=== PATIENT | female | born 1995 | race Caucasian/White ===

== ENCOUNTER 2019-09-07 12:03 | Outpatient (CLI) | payer BC, SELFPAY ==
[2019-09-08 11:02] LABS: Hepatitis A Antibody IgM Negative (Negative); Hepatitis B Core Antibody Negative (Negative); Hepatitis B surface Ag Negative (Negative); Hepatitis C Ab w Rflx HCV PCR Negative (Negative)
[2019-09-08 11:08] LABS: Syphilis Serology (RPR) Negative (Negative)
[2019-09-08 11:18] LABS: HIV-1/2 Ag & Ab Screen Negative (Negative)
== END 2019-09-07 12:23 ==
PROVIDERS: PCP Student in an Organized Health Care Education/Training Program; Visit Provider Obstetrics & Gynecology
DX: Z11.3 Encounter for screening for infections with a predominantly sexual mode of transmission (principal); Z11.59 Encounter for screening for other viral diseases; Z11.4 Encounter for screening for human immunodeficiency virus [HIV]
CPT/HCPCS: 86704; 86709; 86803; 87340; 87389; 86592

== ENCOUNTER 2019-09-07 13:02 | Outpatient (REF) | payer BC, SELFPAY ==
--- NOTE | 2019-09-07 11:40 | PAPFT_PTH ---
PATIENT: Bhavana Munguia LOC: [facility] U#:[id number] AGE/SX: 23/F ROOM: RE09/07/[address]: Aaliyah Cobos DO : 1995 BED: DIS: 09/07/2019 SPEC #: [id number] RECD: 09/07/19 14:36 STATUS: GALA REQ #: [id number] ALICIA: 09/07/19 11:[address]: Aaliyah Cobos DEPT: [facility] Cytology RECD BY: Barbara Klein ENTERED: 09/07/19 14:37 SP TYPE: PAPFT OTHR DR: Kristi Presley DO Tissues: 1 - CX/ENDOCX FOR PAP SMEARS Procedures: PAP THIN PREP/UVM Screening Comments: [id number] (CHLAMYDIA/GC)
[2019-09-08 13:39] LABS: Chlamydia Result Negative (Negative); GC Result Negative (Negative)
== END 2019-09-07 13:22 ==
LOC: LBN 13:02
PROVIDERS: PCP Student in an Organized Health Care Education/Training Program; Visit Provider Obstetrics & Gynecology
DX: Z11.3 Encounter for screening for infections with a predominantly sexual mode of transmission (principal); Z12.4 Encounter for screening for malignant neoplasm of cervix; R87.612 Low grade squamous intraepithelial lesion on cytologic smear of cervix (LGSIL)
CPT/HCPCS: 87491; 87591; 88142

== ENCOUNTER 2020-11-30 02:36 | Outpatient (CLI) | payer OTHER, SELFPAY ==
[2020-11-30 10:58] LABS: HCT 44.9 % (36.0-46.0); HGB 14.8 g/dL (11.2-15.7); MCH 28.6 pg (27.0-33.0); MCV 86.7 fL (80-95); MPV 10.1 fL (8.0-11.0); Platelet Count 296 10^3/uL (130-400); RBC 5.18 10^6/uL (3.93-5.22); RDW 12.8 % (11.7-14.6); RDW-SD 40.4 fL
[2020-11-30 12:01] LABS: ALT 28 U/L (14-59); AST 19 U/L (15-37); Albumin 4.4 g/dL (3.4-5.0); Alkaline Phosphatase 86 U/L (46-116); Anion Gap 11.3 mmol/L (3-11); BUN 13 mg/dL (7-18); Bilirubin, Total 0.5 mg/dL (0.2-1.0); CO2 25.7 mmol/L (21.0-32.0); Calculated LDL 140 mg/dL (<100); Chloride 104 mmol/L (98-107); Cholesterol 202 mg/dL (<200); Glucose 93 mg/dL (74-106); HDL Cholesterol 33 mg/dL (40-60); Potassium 4.1 mmol/L (3.5-5.1); Sodium 141 mmol/L (136-145); TSH (W/Ref FT4) 1.66 uIU/mL (0.36-3.74); Total Protein 8.2 g/dL (6.4-8.2); Triglyceride 146 mg/dL (<150)
== END 2020-11-30 02:37 | disposition home or self-care (01) ==
LOC: LBO 02:36
PROVIDERS: PCP Student in an Organized Health Care Education/Training Program; Visit Provider Student in an Organized Health Care Education/Training Program
DX: K62.5 Hemorrhage of anus and rectum (principal); K58.9 Irritable bowel syndrome, unspecified; E46 Unspecified protein-calorie malnutrition; Z13.220 Encounter for screening for lipoid disorders; E86.0 Dehydration; R53.83 Other fatigue; F41.8 Other specified anxiety disorders; Z80.8 Family history of malignant neoplasm of other organs or systems; R01.1 Cardiac murmur, unspecified; R92.0 Mammographic microcalcification found on diagnostic imaging of breast
CPT/HCPCS: 36415; 80053; 80061; 85027; 83735; 84443

== ENCOUNTER 2021-09-05 10:29 | Outpatient (REF) | payer BC, SELFPAY | END 2021-09-05 10:30 | disposition home or self-care (01) | LOC: LBN 10:29 | PROVIDERS: PCP Student in an Organized Health Care Education/Training Program; Visit Provider Student in an Organized Health Care Education/Training Program | DX: R39.15 Urgency of urination (principal) | CPT/HCPCS: 87086 ==

== ENCOUNTER 2021-09-26 14:35 | Outpatient (REF) | payer BC, SELFPAY | END 2021-09-26 14:36 | disposition home or self-care (01) | LOC: LBN 14:35 | PROVIDERS: PCP Student in an Organized Health Care Education/Training Program; Visit Provider Student in an Organized Health Care Education/Training Program | DX: R30.0 Dysuria (principal) | CPT/HCPCS: 87086 ==

== ENCOUNTER 2021-10-16 15:19 | Outpatient (REF) | payer BC, SELFPAY ==
--- NOTE | 2021-10-16 14:40 | PAPFT_PTH ---
PATIENT: Bhavana Munguia LOC: [facility] U#:[id number] AGE/SX: 25/F ROOM: RE10/16/[address]: Aaliyah Cobos DO : 1995 BED: DIS: 10/16/2021 SPEC #: [id number] RECD: 10/17/21 10:43 STATUS: GALA REQ #: [id number] ALICIA: 10/16/21 14:[address]: Aaliyah Cobos DEPT: [facility] Cytology RECD BY: Mattie De León ENTERED: 10/17/21 10:44 SP TYPE: PAPFT OTHR DR: Kristi Presley DO Tissues: 1 - CX/ENDOCX FOR PAP SMEARS Procedures: PAP THIN PREP/UVM Screening HPV DNA PROBE Comments: [id number] (CHLAMYDIA/GC)
[2021-10-19 08:21] LABS: Chlamydia Result Negative (Negative); GC Result Negative (Negative)
== END 2021-10-16 15:20 | disposition home or self-care (01) ==
LOC: LBN 15:19
PROVIDERS: PCP Student in an Organized Health Care Education/Training Program; Visit Provider Obstetrics & Gynecology
DX: Z11.3 Encounter for screening for infections with a predominantly sexual mode of transmission (principal); Z12.4 Encounter for screening for malignant neoplasm of cervix; Z11.51 Encounter for screening for human papillomavirus (HPV)
CPT/HCPCS: 87491; 87591; 88142; 87624

== ENCOUNTER 2021-10-18 02:23 | Outpatient (CLI) | payer BC, SELFPAY ==
[2021-10-18 08:53] LABS: HGB 14.2 g/dL (11.2-15.7)
[2021-10-18 09:17] LABS: Hemoglobin A1C 5.1 % (<5.7)
[2021-10-18 10:08] LABS: Anion Gap 10.6 mmol/L (3-11); BUN 17 mg/dL (7-18); CO2 26.4 mmol/L (21.0-32.0); CREATININE 0.9 mg/dL (0.55-1.02); Calcium 8.7 mg/dL (8.5-10.1); Calculated LDL 148 mg/dL (<100); Chloride 101 mmol/L (98-107); Cholesterol 200 mg/dL (<200); Glucose 90 mg/dL (74-106); HDL Cholesterol 37 mg/dL (40-60); Potassium 3.8 mmol/L (3.5-5.1); Sodium 138 mmol/L (136-145); TSH (W/Ref FT4) 1.22 uIU/mL (0.36-3.74); Triglyceride 77 mg/dL (<150); Vitamin B12 361 pg/mL (193-986)
== END 2021-10-18 02:24 | disposition home or self-care (01) ==
LOC: LBO 02:23
PROVIDERS: PCP Student in an Organized Health Care Education/Training Program; Visit Provider Student in an Organized Health Care Education/Training Program
DX: R79.89 Other specified abnormal findings of blood chemistry (principal); E53.8 Deficiency of other specified B group vitamins; E46 Unspecified protein-calorie malnutrition; F32.89 Other specified depressive episodes; R01.1 Cardiac murmur, unspecified; R00.0 Tachycardia, unspecified; Z13.220 Encounter for screening for lipoid disorders; Z13.1 Encounter for screening for diabetes mellitus; Z80.8 Family history of malignant neoplasm of other organs or systems; Z83.3 Family history of diabetes mellitus; Z83.2 Family history of diseases of the blood and blood-forming organs and certain disorders involving the immune mechanism; K90.89 Other intestinal malabsorption
CPT/HCPCS: 36415; 80048; 80061; 82607; 82746; 83036; 84443; 85018

== ENCOUNTER 2021-11-13 16:32 | Outpatient (REF) | payer BC, SELFPAY ==
[2021-11-13 20:07] LABS: Bacteria Negative HPF (Negative); C & S Indicated? No; Crystals Negative HPF (Negative); Epithelial Cells Moderate HPF (Negative); Mucus Negative (Negative); RBC 0-2 HPF (0-2); WBC 0-2 HPF (0-5)
== END 2021-11-13 16:33 | disposition home or self-care (01) ==
LOC: LBN 16:32
PROVIDERS: PCP Student in an Organized Health Care Education/Training Program; Visit Provider Student in an Organized Health Care Education/Training Program
DX: R39.89 Other symptoms and signs involving the genitourinary system (principal); R82.998 Other abnormal findings in urine
CPT/HCPCS: 81015

== ENCOUNTER 2021-11-19 03:20 | Outpatient (CLI) | payer BC, SELFPAY ==
[2021-11-19 12:52] LABS: Source Nasal/Nares
[2021-11-19 16:57] LABS: COVID-19 PCR Negative (Negative)
== END 2021-11-19 03:21 | disposition home or self-care (01) ==
LOC: LBO 03:20
PROVIDERS: PCP Student in an Organized Health Care Education/Training Program; Visit Provider Surgery
DX: Z20.822 Contact with and (suspected) exposure to COVID-19 (principal); Z01.818 Encounter for other preprocedural examination
CPT/HCPCS: 87635

== ENCOUNTER 2021-11-21 11:59 | Day surgery (SDC) | payer BC, SELFPAY ==
[2021-11-21 12:05] VITALS: BP 130/89; PULSE 70; RESP 18; TEMP 36.7; O2SAT 96
--- NOTE | 2021-11-21 12:28 | W.PM.DSUDISC ---
Discharge Plan Disposition Patient Disposition: HOME Condition: Good Discharge Details Reason For Visit: EGD Attending Provider: Jay Campbell Primary Care Provider: Kristi Presley Home Meds and New Rx's Prescriptions: Continued hyoscyamine sulfate 0.125 mg tablet 0.125 mg PO Q4H PRN Qty: 180 3RF Hold Instructions: Home Medication placed on hold at Doctor's office Rx Instructions: 1-2 tabs propranolol 10 mg tablet 10 mg PO BID PRN (Reason: anxiety, panic response) Qty: 20 1RF nystatin-triamcinolone 100,000-0.1 unit/gram-% ointment 1 applic topical BID Qty: 60 1RF diazepam 5 mg tablet 5 mg PO TID PRN (Reason: muscle spasm) Qty: 60 0RF Rx Instructions: medicine to be used intravaginally, not PO prenat.vits,bia,[id number]-vgri-[id number] Tablet 1 tab PO DAILY hyoscyamine sulfate 0.125 mg tablet,disintegrating 0.25 mg PO Q4H PRN PRN (Reason: dyspepsia) Qty: 60 1RF bupropion HCl [Wellbutrin SR] 150 mg tablet sustained-release 12 hr 150 mg PO QAM Qty: 30 1RF pantoprazole 40 mg tablet,delayed release (DR/EC) 40 mg PO DAILY Qty: 30 0RF Discharge Instructions Instructions: Upper Endoscopy (DC) Additional Instructions: 1. If tolerated, consume a soft, low fiber diet for 1-2 days[address] not drive, drink alcohol, operate machinery, make critical decisions, or do activities that require coordination or balance for 24 hours. 3. You may experience a sore throat for 24 to 48 hours. You may use throat lozenges or gargle with warm salt water to relieve the discomfort. 4. Because air was put into your stomach during the procedure, you may experience some belching. 5. Go directly to the emergency room if you notice any of the following: Develop chills (warm to touch), or if you have a thermometer and your temperature is above 101 Difficulty breathing or difficultly swallowing Persistent vomiting Severe abdominal pain, other than gas cramps Severe chest pain Black, tarry stools Any bleeding ? exceeding one tablespoon 6. Call your physician if the site where your intravenous was started becomes red, swollen, painful, and warm to touch. 7. Your physician has reviewed your pre-procedure medications. Please continue to take those medications as previously ordered. You will be given specific information/education regarding any changes to your medications before leaving. 8. My office will contact you regarding biospy results, this may take several business days Referrals: Kristi Presley DO [Primary Care Provider] - Activity:: Activity as Tolerated Diet:: As Tolerated Discharge Orders Discharge Orders: Discharge Order (Routine); Ordered 11/21/21 Ordered By: Jay Campbell DS: Diagnosis Discharge Diagnosis (1) Abdominal pain: Status: Acute Asessment and Plan: No evidence of esophageal, gastric or duodenal problems on EGD follow up biopsy results
--- NOTE | 2021-11-21 12:31 | ENDO_ITS ---
Date of service: 11/21/21 Time of Service: 13:35 Endoscopy Report DATE OF PROCEDURE: 11/21/21 PRE-OP DIAGNOSIS: gastroesophageal reflux disease POST-OP DIAGNOSIS: other (abdominal pain) PROCEDURE: EGD SURGEON: Jay aCmpbell ANESTHESIA TYPE: General:No Airway ESTIMATED BLOOD LOSS: 15 PATHOLOGY: other (duodenal, atral and stomach body) COMPLICATIONS: None DISPOSITION: same day INDICATIONS: 25-year-old longstanding symptoms of gastroesophageal reflux disease managed with proton pump inhibition. Most recently, she is having exacerbation of abdominal discomfort which she mostly is postprandial. PROCEDURE START TIME: 13:10 PROCEDURE END TIME: 13:15 FINDINGS: Normal-appearing duodenum, stomach and esophagus. Z-line is located at 35 cm from the incisors PROCEDURE DESCRIPTION: After the initiation of monitored anesthetic care, and with the assistance of a bite block, I advanced a standard gastroscope through the mouth past the hypopharynx and into the esophagus.? Under the direct vision of the scope, I advanced down the esophagus into the stomach.? Once I entered the stomach, I performed a brief inspection, followed by retroflexion towards the gastric cardia.? This appeared normal.? After that, I gently advanced the scope around the incisura angularis and examined the pylorus.? This also appeared normal.? Next, I advanced the scope through the pylorus into the duodenum.? The mucosa was pink and healthy appearing.? There were no abnormalities.? I was able to vis ualize bile draining into the duodenum through the ampulla Vater. ?I performed 2 random biopsies of duodenal mucosa. There was minimal bleeding. Next I began retracting the endoscope.? Again, I returned to the stomach which was carefully examined.? Once inside the stomach, I performed random biopsies of the antrum as well as the gastric body. I then gently desufflated some of the stomach, and wi thdrew the endoscope into the distal esophagus. The Z-line is measured at approximately 35 cm from the incisors. There is no evidence of any reflux into the distal esophagus. There is no evidence of Yen's esophagitis. ?Finally, I withdrew the scope along the length of the esophagus taking great care to examine the entirety of the mucosa.? I did not appreciate any abnormalities.
--- NOTE | 2021-11-21 12:36 | W.ANESPRE ---
General Info Date of Service Date Performed: 11/21/21 Height: 5 ft 4 in Weight: 94.8 kg Body Mass Index (BMI): 35.9 Surgical Procedure: Operation Date: 11/21/21 13:05 Proposed Procedure Side Surgeon p Gastroscopy Jay Campbell MD Meds Allergies and Home Medications Allergies Allergy/AdvReac Type Severity Reaction Status Date / Time amoxicillin Allergy Unknown Verified 11/21/21 12:55 sulfamethoxazole AdvReac Nausea, Verified 11/21/21 12:55 [From Bactrim] vomiting, chills trimethoprim [From Bactrim] AdvReac Nausea, Verified 11/21/21 12:55 vomiting, chills Home Medication Medication Instructions Recorded hyoscyamine sulfate 0.125 mg tablet 0.125 mg PO Q4H PRN #180 tabs 12/14/19 propranolol 10 mg tablet 10 mg PO BID PRN anxiety, panic 10/03/21 response #20 tabs nystatin-triamcinolone 100,000 1 applic topical BID #60 grams 10/16/21 unit/gram-0.1 % topical ointment hyoscyamine sulfate 0.125 mg 0.25 mg PO Q4H PRN PRN dyspepsia 10/25/21 disintegrating tablet #60 tabs prenat.vits,bia,kow-ksmd-ylber 1 tab PO DAILY 10/25/21 bupropion HCl 150 mg tablet,12 hr 150 mg PO QAM #30 tabs 10/26/21 sustained-release (Wellbutrin SR) pantoprazole 40 mg tablet,delayed 40 mg PO DAILY #30 tabs 10/28/21 release diazepam 5 mg tablet 5 mg PO TID PRN muscle spasm #60 11/04/21 tabs Current Visit Medications: Current Medications Generic Name Dose Route Start Last Admin Trade Name Freq PRN Reason Stop Dose Admin Ringer's Solution 1,000 mls @ 80 mls/hr 11/21/21 06:00 IV 12/20/21 23:59 INFUSION LALI IV Miscellaneous Supplies 1 each 11/21/21 06:00 Iv Access IV 12/20/21 23:59 DIRECTED LALI Sodium Chloride 0 ml 11/21/21 06:00 Normal Saline Flush 10 Ml Syr IV 12/20/21 23:59 PRN PRN Sodium Chloride 0 ml 11/21/21 06:00 Normal Saline 10 Ml Vial IJ 12/20/21 23:59 DIRECTED PRN Sterile Water 0 ml 11/21/21 06:00 Water,Injection,Sterile 10 Ml Vial IJ 12/20/21 23:59 DIRECTED PRN PFSH Active Problems Active Problems: Problem Status Onset Code Heart murmur R01.1 Family hx of colon cancer Z80.0 GERD (gastroesophageal reflux disease) K21.9 Pelvic floor dysfunction M62.89 Medical History Medical History Amenorrhea Anxiety and depression Arthralgia Lower Leg Chest pain Per pt. stated this is r/t to her anxiety and acid reflux Cloudy urine Dysuria Encounter for monitoring long-term proton pump inhibitor therapy Family history of thyroid cancer Paternal aunt. Family hx-breast malignancy Paternal GM Hemorrhage of rectum and anus History of abnormal cervical Pap smear ~ 2019, with no Tx as expected recovery (but unclear why PAP in 1st place unless concern for DDx of vaginismus) Hx of chronic ear infection tubes Irritable bowel syndrome notices she will often feel ill after meals .. possible gastroparesis? Scoliosis Screen for STD (sexually transmitted disease) Sensation of pressure in bladder area Vaginismus Hx, with resolution post focused effort Yeast dermatitis Tobacco Smoking/Tobacco Use Status: Never Passive smoking exposure: Yes Second hand exposure: Yes Alcohol Alcohol Intake: current Alcohol intake frequency: holidays/special occasions only Substance Use Substance use: Never Substance use type: does not use Prental History History 0 Para Hx # Term Pregnancies Multiple births Hx # Pregnancies Ectopic pregnancies AB induced Hx Number of Living Children AB spontaneous Vital Signs and Lab Results Vital Signs Most Recent Vital Signs in EMR: Most Recent Vital Signs Temp Pulse Resp BP Pulse Ox 36.7 C 70 18 130/89 96 11/21/21 12:05 11/21/21 12:05 11/21/21 12:05 11/21/21 12:05 11/21/21 12:05 Point of Care Results Point of Care Results: POC- Test(urine) Negative 11/21/21 12:24 Lab Results Blood Type / Crossmatch: No Data to Display Complete Blood Count: No Data to Display Complete Metabolic Panel: No Data to Display Liver Function Panel: No Data to Display Coagulation Panel: No Data to Display Cardiac Panel: No Data to Display Arterial Blood Gas: No Data to Display Venous Blood Gas: No Data to Display Pancreas Panel: No Data to Display Thyroid Panel: No Data to Display Infectious Disease: Coronavirus (COVID-19)(PCR) Negative (Negative) 11/19/21 08:45 Coronavirus 2019 Source Nasal/Nares 11/19/21 08:45 Blood Cultures: No Data to Display Toxicology Panel: No Data to Display Panel: No Data to Display Anesthesia Assessment and Plan Anesthesia History Personal History: No History of Anesthesia Complications Family History: No Family History of Anesthesia Complications Exercise Tolerance Exercise Tolerance: Metabolic Equivalents>4 Cardiac & Pulmonary Exam Cardiac Exam: Normal S1/S2 Heart Sounds Pulmonary Exam: Clear Bilateral Breath Sounds Implantable Cardiac Device Does patient have a Pacemaker or an ICD?: No Airway Exam Known Difficult Airway: No Mallampati Class: 1 Mouth Opening: Normal (> 3cm) Thyromental Distance: Greater than 3 cm Neck Range of Motion: Full ROM Neck Circumference: Normal Teeth Condition: Normal Dentition ASA Classification ASA Score: ASA 2 Emergency Case?: No NPO Status NPO Status: NPO Clears >2 hours, Solids >8 hours Status Status: Negative HCG Anesthesia Plan Resuscitation Status: Full Code Anesthesia Technique: General Anesthesia Airway Planned: Natural Airway Monitors Used: Standard Monitors Preoperative Comments:: 25 yo female for EGD Sig PMHx: anxiety/depression, never, occ EtOH, GERD (pantoprazole).
[2021-11-21 12:55] VITALS: BMI 35.9
[2021-11-21] MEDS: Lactated Ringers 1,000 ML 80 ML IV (12:55)
--- NOTE | 2021-11-21 13:13 | STOM_PTH ---
PATIENT: Bhavana Munguia LOC: [facility] U#:[id number] AGE/SX: 25/F ROOM: RE11/21/[address]: Jay Campbell MD : 1995 BED: DIS: 11/21/2021 SPEC #: [id number] RECD: 11/21/21 18:35 STATUS: TABRadha RE #: [id number] ALICIA: 11/21/21 13:[address]: Jay Campbell DEPT: Surgical Specimen RECD BY: Barbara Klein ENTERED: 11/21/21 18:38 SP TYPE: STOMACH OTHR DR: Kristi Presley DO Tissues: 1 - BIOPSY BOWEL 2 - STOMACH BIOPSY 3 - STOMACH BIOPSY Procedures: GROSS AND MICRO LEVEL 4 Comments: [id number]
[2021-11-21 13:28] VITALS: BP 94/68; PULSE 98; RESP 16; TEMP 36.5; O2SAT 95
--- NOTE | 2021-11-21 13:32 | W.ANESPOSTOP ---
Postoperative Evaluation Date, Time and Location Date Performed: 11/21/21 Time Performed: 13:32 Patient Location: Day Surgery Unit Vital Signs Most Recent Imported Vital Signs: Most Recent Vital Signs Temp Pulse Resp BP Pulse Ox 36.5 C 98 H 16 94/68 L 95 11/21/21 13:28 11/21/21 13:28 11/21/21 13:28 11/21/21 13:28 11/21/21 13:28 Pain Score Most Recent Pain Score: Most Recent Pain Score Pain Level 0 11/21/21 13:28 Assessment Mental Status: Awake (Alert & Oriented to Patient Baseline) Airway and Respiratory Function: Patent airway with normal (patient baseline) respiratory exam Cardiovascular Function: Hemodynamically Stable Hydration Status: Adequately Hydrated Nausea & Vomiting: No Nausea or Vomiting Pain: Pt. Denies Any Pain Peripheral Nerve Block: Patient did not receive a nerve block
[2021-11-21 13:56] VITALS: BP 100/65; PULSE 77; RESP 16; TEMP 36.3; O2SAT 97
== END 2021-11-21 14:28 | disposition home or self-care (01) ==
PROVIDERS: PCP Student in an Organized Health Care Education/Training Program; Visit Provider Surgery
PROC: 0DJ68ZZ Inspection of Stomach, Via Natural or Artificial Opening Endoscopic (ICD-10-PCS; CPT 43235; principal; 2021-11-21 13:00)
DX: K21.9 Gastro-esophageal reflux disease without esophagitis (principal); R10.13 Epigastric pain; K31.89 Other diseases of stomach and duodenum
CPT/HCPCS: 43239; 81025; 88305

== ENCOUNTER 2022-03-21 09:35 | Outpatient (REF) | payer BC, SELFPAY ==
[2022-03-23 13:30] LABS: COVID-19 RT-PCR UVMMC Result Negative (Negative)
[2022-03-23 13:51] LABS: Influenza A RNA Result Positive (Negative); Influenza B RNA Result Negative (Negative); RSV RNA Result Negative (Negative)
== END 2022-03-21 09:36 | disposition home or self-care (01) ==
LOC: LBN 09:35
PROVIDERS: PCP Student in an Organized Health Care Education/Training Program; Visit Provider Nurse Practitioner Family
DX: R05.9 Cough, unspecified (principal); R11.0 Nausea; R11.10 Vomiting, unspecified; R51.9 Headache, unspecified; R68.83 Chills (without fever); Z20.822 Contact with and (suspected) exposure to COVID-19
CPT/HCPCS: 87631; U0003

== ENCOUNTER 2022-08-12 12:01 | Outpatient (CLI) | payer BC, SELFPAY ==
--- NOTE | 2022-08-12 10:30 | DI.RAD_ITS ---
Exam(s) XR WRIST LT COMPLETE EXAM: XR WRIST LT COMPLETE CLINICAL HISTORY: Unexplained pain, middle of wrist M25.532 PAIN LEFT WRIST. TECHNIQUE: 2D digital imaging was performed. COMPARISON: No exams were available for comparison FINDINGS: 3 views No evidence of acute fracture nor dislocation nor significant ulnar variance. Scaphoid and scapholun ate distance are normal. Bone density normal. No osseous lesions. No erosions. IMPRESSION: No significant osseous findings. DATA REPOSITORY: RADIATION DOSE DELIVERED:
== END 2022-08-12 12:21 ==
PROVIDERS: PCP Student in an Organized Health Care Education/Training Program; Visit Provider Family Medicine
DX: M25.532 Pain in left wrist (principal)
CPT/HCPCS: 73110

== ENCOUNTER 2022-10-03 12:32 | Outpatient (CLI) | payer BC, SELFPAY ==
[2022-10-03 14:17] LABS: TSH (W/Ref FT4) 1.62 uIU/mL (0.36-3.74)
== END 2022-10-03 12:33 | disposition home or self-care (01) ==
LOC: LBO 12:32
PROVIDERS: PCP Student in an Organized Health Care Education/Training Program; Visit Provider Nurse Practitioner Family
DX: F41.8 Other specified anxiety disorders (principal); F32.89 Other specified depressive episodes
CPT/HCPCS: 36415; 84443

== ENCOUNTER 2023-02-13 22:34 | Outpatient (REF) | payer BC, SELFPAY | END 2023-02-13 22:35 | disposition home or self-care (01) | LOC: LBN 22:34 | PROVIDERS: PCP Student in an Organized Health Care Education/Training Program; Visit Provider Family Medicine | DX: N39.0 Urinary tract infection, site not specified (principal) | CPT/HCPCS: 87086 ==

== ENCOUNTER 2023-04-13 20:08 | Emergency (ER) | payer BC, SELFPAY ==
[2023-04-13] VITALS (13 sets, daily range): BP systolic 117–121; BP diastolic 74–98; PULSE 91–98; RESP 14–18; TEMP 36.7; O2SAT 97–99
[2023-04-13 20:39] LABS: Abs Immature Grans 0.02 10^3/uL (0.0-0.06); Absolute Basophil Count 0.04 10^3/uL (0.0-0.2); Absolute Eosinophil Count 0.05 10^3/uL (0.0-0.7); Absolute Lymphocyte Count 1.82 10^3/uL (1.2-3.4); Absolute Monocyte Count 0.49 10^3/uL (0.1-0.8); Absolute Neutrophil Count 6.51 10^3/uL (1.2-6.7); Basophils % 0.4; Eosinophils % 0.6; HCT 43.7 % (36.0-46.0); HGB 14.9 g/dL (11.2-15.7); Immature Grans % 0.2; Lymphocytes % 20.4; MCHC 34.1 % (32.0-36.0); MCV 85 fL (80-95); MPV 9.9 fL (8.0-11.0); Monocytes % 5.5; Neutrophils % 72.9; Platelet Count 301 10^3/uL (130-400); RBC 5.14 10^6/uL (3.93-5.22); RDW 12.7 % (11.7-14.6); RDW-SD 39.5 fL; WBC 8.93 10^3/uL (4.4-10.8)
--- NOTE | 2023-04-13 20:49 | W.ED.GENAD ---
Discharge Plan Disposition Patient Disposition: Home Discharge Details Clinical Impression: COVID-19, Aversion to food, Nausea & vomiting Primary Care Provider: Kristi Presley ED Provider: Barbara Rios Home Meds and New Rx's Prescriptions: New lorazepam [Ativan] 1 mg tablet 1 mg PO DAILY PRNQty: 5 0RF Continued amitriptyline 25 mg tablet 25 mg PO QHS Qty: 90 1RF hydroxyzine HCl 25 mg tablet 25 - 50 mg PO HS PRN (Reason: IC) Qty: 60 0RF ondansetron HCl 4 mg tablet 4 mg PO Q8H PRN (Reason: nausea and vomiting) Qty: 30 0RF propranolol 10 mg tablet 10 - 20 mg PO BID PRN (Reason: anxiety, panic response) Qty: 40 1RF famotidine 40 mg tablet 40 mg PO BID Qty: 60 1RF Rx Instructions: Continuing high-dose due to Hx GERD, but tapering PPI Discharge Instructions Instructions: Acute Nausea and Vomiting (ED), Viral Syndrome (ED) Additional Instructions: TAKE ATIVAN SPARINGLY, YOU MAY TAKE ONCE A DAY NEEDED FOR NAUSEA AND VOMITING TRY JELLO, PUDDING, SALTINES, GINGERALE TRY TO HAVE SMALL, FREQUENT MEALS RETURN EARLIER SHOULD YOU HAVE NEW OR WORSENING COMPLAINTS Stand Alone Forms: Work Release Referrals: Kristi Presley DO [Primary Care Provider] - Medical Decision Making This 27-year-old female presents with nausea vomiting Alert, oriented, in no acute distress, nontender abdominal exam, moist mucous membranes She has had COVID-19 for the past 10 days and felt particularly for this weekend, she presents today because she denies aversion to food and has not been able to eat or drink. She has had some hunger pains in her abdomen and has her menses right now. She denies any chance of . She denies any fever or chills. She denies any blood in vomitus. Last vomit was 3 days ago Given Ativan in the emergency department, feeling marked improvement, able to tolerate p.o. Given several Ativan for home, risk of addiction reviewed Driving precautions reviewed Negative , slight ketones, but able to tolerate p.o. in the emergency department and able to urinate in the emergency department Return precautions reviewed and patient expressed understanding HPI General Date/Time Provider Initiated Documentation: 04/13/23 20:09. HPI Narrative: 27-year-old female presenting with report of anorexia, nausea, vomiting. States had COVID 10 days ago. States that she had recurrence of symptoms approximately 4 days ago was exposed to somebody with a stomach bug on the . Denies any diarrhea. Denies chance of . Denies any chest pain or shortness of breath. Has had some cramping in her abdomen. Denies any urinary symptoms or known spoiled food exposure. Related Data Home Medications Medication Instructions Recorded Confirmed propranolol 10 mg tablet 10 - 20 mg (1 - 2 x 10 mg) PO BID 10/03/22 04/13/23 PRN anxiety, panic response #40 tabs amitriptyline 25 mg tablet 25 mg PO QHS #90 tabs 11/11/22 04/13/23 famotidine 40 mg tablet 40 mg PO BID #60 tabs 01/12/23 04/13/23 ondansetron HCl 4 mg tablet 4 mg PO Q8H PRN nausea and 02/24/23 04/13/23 vomiting #30 tabs hydroxyzine HCl 25 mg tablet 25 - 50 mg (1 - 2 x 25 mg) PO HS 03/04/23 04/13/23 PRN IC #60 tab-caps lorazepam 1 mg tablet (Ativan) 1 mg PO DAILY PRN #5 tabs 04/13/23 Previous Rx's Medication Instructions Recorded propranolol 10 mg tablet 10 - 20 mg (1 - 2 x 10 mg) PO BID 10/03/22 PRN anxiety, panic response #40 tabs amitriptyline 25 mg tablet 25 mg PO QHS #90 tabs 11/11/22 famotidine 40 mg tablet 40 mg PO BID #60 tabs 01/12/23 ondansetron HCl 4 mg tablet 4 mg PO Q8H PRN nausea and 02/24/23 vomiting #30 tabs hydroxyzine HCl 25 mg tablet 25 - 50 mg (1 - 2 x 25 mg) PO HS 03/04/23 PRN IC #60 tab-caps lorazepam 1 mg tablet (Ativan) 1 mg PO DAILY PRN #5 tabs 04/13/23 Allergies Allergy/AdvReac Type Severity Reaction Status Date / Time amoxicillin Allergy Unknown Hives Verified 04/13/23 20:20 sulfamethoxazole AdvReac Nausea, Verified 04/13/23 20:20 [From Bactrim] vomiting, chills trimethoprim [From Bactrim] AdvReac Nausea, Verified 04/13/23 20:20 vomiting, chills General Stated Complaint: GenMedical KYM: 3 PFSH All Active Problems (Updated 04/13/23 @ 22:01 by AGUSTÍN Ortega) Nausea & vomiting (Acute) Aversion to food (Acute) COVID-19 (Acute) Anxiety and depression (Chronic) Wrist pain, left (Acute) Abdominal pain (Acute) Heart murmur (Acute) EKG, Stress Tests (_), 2011-. Family hx of colon cancer (Acute) Mo (@ 47yo, 2016), living. Maternal GM. [place] 2011, 2019 (Dr. Prasad Berman)(5 yr recall). Pelvic floor dysfunction (Acute) Medical History Amenorrhea Arthralgia Lower Leg Chest pain Per pt. stated this is r/t to her anxiety and acid reflux Cloudy urine Dysuria Encounter for monitoring long-term proton pump inhibitor therapy Family history of thyroid cancer Paternal aunt. Family hx-breast malignancy Paternal GM GERD (gastroesophageal reflux disease) Hemorrhage of rectum and anus History of abnormal cervical Pap smear ~ 2019, with no Tx as expected recovery (but unclear why PAP in 1st place unless concern for DDx of vaginismus) Hx of chronic ear infection tubes Irritable bowel syndrome notices she will often feel ill after meals .. possible gastroparesis? Scoliosis Screen for STD (sexually transmitted disease) Sensation of pressure in bladder area Vaginismus Hx, with resolution post focused effort Yeast dermatitis Family History Sister Substance abuse Anxiety Asthma Depression Mother Anxiety Colon cancer Depression Maternal Grandmother Colon cancer Diabetes Paternal Grandmother Breast cancer Anxiety Maternal Uncle Heart disease Father Heart disease Paternal Aunt Thyroid cancer Maternal Grandfather Anxiety Social History Smoking/Tobacco Use Status: Never Second Hand Exposure: Yes Smoking risk assessment performed?: Yes Alcohol Intake: current Alcohol Intake frequency: holidays/special occasions only Drug use: Never Substance use type: does not use Adopted: No Caregiver/Support person: No Foster care: No Household members: spouse, children and other Details: stepdaughter Housing: apartment Number of Children: 1 number of grandchildren: 0 Communication Needs: None Education Level: master's degree Do you need help understanding health information?: Rarely current occupation: Teacher, [employer] Pets and animals: Yes Pets and animals: dog(s) Sexually active: Yes Do you think of yourself as: straight/heterosexual Current gender identity: female What is your relationship status?: How often do you talk on the phone with friends or family?: once per week How often do you get together with friends or relatives?: never Do you belong to any clubs or organized social groups?: no Panel score (0-1 are the most socially isolated patients): 1 What type of physical activity do you participate in: walking Duration: < 15 minutes/day Frequency: 3-4 times per week Shilpi/Jainism: None Agree to transfusion: No Seatbelt use: always Helmet use: No Drive intox or ride w/intox salesperson driver: No Do you feel safe at home: Yes Do you feel safe in your relationship?: Yes History History 0 Para Hx # Term Pregnancies Multiple births Hx # Pregnancies Ectopic pregnancies AB induced Hx Number of Living Children AB spontaneous Course Vital Signs Vital signs: Vital Signs Temperature 36.7 C 04/13/23 20:10 Pulse 95 H 04/13/23 20:10 Respiratory Rate 18 04/13/23 20:10 Blood Pressure 121/98 H 04/13/23 20:10 Pulse Oximetry 99 04/13/23 20:10 Temperature 36.7 C 04/13/23 20:10 Temperature Source Oral 04/13/23 20:10 Pulse 95 H 04/13/23 20:10 Respiratory Rate 18 04/13/23 20:10 Respiratory Effort Normal 04/13/23 20:22 Blood Pressure 121/98 H 04/13/23 20:10 Pulse Oximetry 99 04/13/23 20:10 Oxygen Delivery Method Room Air 04/13/23 20:10 Oxygen Flow Rate 0 04/13/23 20:10 Pain Level 8 04/13/23 20:10 Lab/Test Results Lab/Test Results: Laboratory Tests Range/Units 04/13/23 20:30 WBC (4.4-10.8) 10^3/uL 8.93 RBC (3.93-5.22) 10^6/uL 5.14 Hgb (11.2-15.7) g/dL 14.9 Hct (36.0-46.0) % 43.7 MCV (80-95) fL 85 MCH (27.0-33.0) pg 29.0 MCHC (32.0-36.0) % 34.1 RDW (11.7-14.6) % 12.7 Plt Count (130-400) 10^3/uL 301 MPV (8.0-11.0) fL 9.9 Immature Gran % 0.2 Neutrophils % 72.9 Lymphocytes % 20.4 Monocytes % 5.5 Eosinophils % 0.6 Basophils % 0.4 Nucleated RBC % (0.0-0.3) % 0.0 Absolute Neutrophils (1.2-6.7) 10^3/uL 6.51 Absolute Lymphocytes (1.2-3.4) 10^3/uL 1.82 Absolute Monocytes (0.1-0.8) 10^3/uL 0.49 Absolute Eosinophils (0.0-0.7) 10^3/uL 0.05 Absolute Basophils (0.0-0.2) 10^3/uL 0.04
[2023-04-13] MEDS: Lactated Ringers 1,000 ML 1000 ML IV (20:52)
[2023-04-13] MEDS: Prochlorperazine 10 MG/2 ML VIAL 5 MG IVP (20:52)
[2023-04-13] MEDS: LORazepam 2 MG/ML VIAL 1 MG IVP (20:53)
[2023-04-13] MEDS: Normal Saline 50 ML 200 ML (20:54)
[2023-04-13 21:03] LABS: ALT 23 U/L (14-59); AST 18 U/L (15-37); Albumin 3.8 g/dL (3.4-5.0); Alkaline Phosphatase 71 U/L (46-116); Anion Gap 11.4 mmol/L (3-11); BUN 13 mg/dL (7-18); Bilirubin, Total 0.6 mg/dL (0.2-1.0); CO2 25.6 mmol/L (21.0-32.0); CREATININE 0.9 mg/dL (0.55-1.02); Calcium 8.9 mg/dL (8.5-10.1); Chloride 104 mmol/L (98-107); Glucose 107 mg/dL (74-106); Lipase 23 U/L (16-77); Magnesium 2.2 mg/dL (1.8-2.4); Potassium 3.6 mmol/L (3.5-5.1); Sodium 141 mmol/L (136-145); TSH (W/Ref FT4) 0.78 uIU/mL (0.36-3.74); Total Protein 8.3 g/dL (6.4-8.2)
[2023-04-13 21:18] LABS: Influenza A PCR Negative (Negative); Influenza B PCR Negative (Negative); RSV PCR Negative (Negative)
[2023-04-13 21:36] LABS: COVID-19 PCR Positive (Negative); Source Nasopharynx
[2023-04-13 21:57] LABS: Bilirubin Negative (Negative); Blood Large (Negative); Clarity Sl Cloudy (Clear); Glucose Negative (Negative); Ketones 15 mg/dL (Negative); Leukocyte Esterase Negative (Negative); Nitrite Negative (Negative)
[2023-04-13 22:01] LABS: Bacteria Few HPF (Negative); C & S Indicated? Yes; Casts Negative LPF (Negative); Crystals Negative HPF (Negative); Epithelial Cells Few HPF (Negative); Mucus Trace (Negative)
== END 2023-04-13 22:12 | disposition home or self-care (01) ==
PROVIDERS: Emergency Provider Physician Assistant; PCP Student in an Organized Health Care Education/Training Program
DX: U07.1 COVID-19 (principal); R11.2 Nausea with vomiting, unspecified
CPT/HCPCS: 80053; 83690; 87637; 96361; 96374; 96375; 99284; 81003; 81015; 83735; 84443; 85025; 87086; J0780; J2060

== ENCOUNTER 2023-10-01 13:22 | Outpatient (RCR) | payer BC, SELFPAY ==
--- NOTE | 2023-10-01 13:45 | HOLTER_ITS ---
APPROVED REPORT Conclusion This is a 48-hour Holter monitor Predominant rhythm was sinus with an average heart rate of 73. Minimum was 55, maximum 115 There were very rare isolated atrial and ventricular ectopic beats Sinus arrhythmia was present, considered normal finding There was no atrial fibrillation, no high-grade AV block, no pauses greater than 3 seconds Reported symptoms had no correlation to any dysrhythmia
== END 2023-10-11 23:59 | disposition home or self-care (01) ==
LOC: CARDOPNVT 13:22
PROVIDERS: PCP Student in an Organized Health Care Education/Training Program; Visit Provider Student in an Organized Health Care Education/Training Program
DX: R00.0 Tachycardia, unspecified (principal)
CPT/HCPCS: 93225; 93226

== ENCOUNTER → 2023-10-06 01:44 | Outpatient (CLI) | payer OTHER, BC, SELFPAY ==
--- NOTE | 2023-10-06 06:30 | DI.RAD_ITS ---
Exam(s) XR CLAVICLE RT XR SHOULDER RT COMPLETE 2+V EXAM: XR SHOULDER RT COMPLETE 2+V CLINICAL HISTORY: evaluate joint spaces, bony path,trauma,shoulder pain,m25.519. TECHNIQUE: 2D digital imaging was performed. Five views of the shoulder. Two views of the clavicle COMPARISON: CR XR CLAVICLE RT from 10/06/2023 FINDINGS: BONES: No acute fracture is present. No bony destructive lesion is seen. JOINTS: No dislocation present. The AC joint is not widened. Sternoclavicular joints appear symmetr ic. SOFT TISSUE: Normal. IMPRESSION: Unremarkable radiographs of the right shoulder and clavicle. DATA REPOSITORY: RADIATION DOSE DELIVERED:
--- NOTE | 2023-10-06 06:30 | DI.RAD_ITS ---
Exam(s) XR CHEST 2V PA LATERAL EXAM: XR CHEST 2V PA LATERAL CLINICAL HISTORY: evaluate 1st rib 2' pain prox/behind ac-joint,trauma,T14.8xxa TECHNIQUE: 2D digital imaging was performed. Two views. COMPARISON: CR XR SHOULDER RT COMPLETE 2+V from 10/06/2023 CR XR CLAVICLE RT from 10/06/2023 FINDINGS: HEART: Normal size. Aorta: Not dilated. PULMONARY VASCULATURE: Normal. MEDIASTINUM: Unremarkable. LUNGS: Clear. PLEURAL SPACE: No pleural effusion or pneumothorax. BONE:Unremarkable for age. SOFT TISSUES: Unremarkable. IMPRESSION: No acute abnormality. DATA REPOSITORY: RADIATION DOSE DELIVERED:
== END ==
PROVIDERS: PCP Student in an Organized Health Care Education/Training Program; Visit Provider Student in an Organized Health Care Education/Training Program
DX: F42.9 Obsessive-compulsive disorder, unspecified (principal); Y99.0 Civilian activity done for income or pay; X50.9XXA Other and unspecified overexertion or strenuous movements or postures, initial encounter; T14.8XXA Other injury of unspecified body region, initial encounter; M79.10 Myalgia, unspecified site; M89.8X1 Other specified disorders of bone, shoulder; M25.519 Pain in unspecified shoulder
CPT/HCPCS: 71046; 73000; 73030

== ENCOUNTER 2023-11-06 01:52 | Outpatient (CLI) | payer BC, SELFPAY ==
--- OUTSIDE RECORDS SUMMARY | 2023-11-06 01:56 | XMS_ITS | Encounter Summary ---
Author Organization [facility] Address [address] [place] [address] Care Team Providers Care Facilities Manager Name Role Phone Kristi Presley DO Primary Care Provid er Encounter Details Date Type Department Care Team (Late st Contact Info) Description 03/22/2022 Lab Requisition [facility] Pathology & Laboratory Medicine - [facility] [address] [place] [address] Outr Resulting Lab, Provider Social History Tobacco Use Types Packs/Day Years Used Date Smoking Tobacco: Never Assessed Interpersonal Safety Answer Date Record ed Physically Hurt Never 03/06/2020 Verbally Threaten Not on file 03/06/2020 Sex and Gender Information Value Date Recorded Sex Assigned at Not on file Gender Identity Not on file Sexual Orientation Not on file documented as of this encounter Plan of Treatment Not on file documented as of this encounter Procedures Procedure Name Priority Date/Time Associated Diagnosis Comments MARICRUZ INFLUENZA A AND B, RSV PCR Routine 03/21/2022 9:20 EST documented in this encounter Results * (ABNORMAL) INFLUENZA A AND B,RSV PCR (03/21/2022 9:20 EST) FLU A RNA Result (FLARES) Positive(A) Negative 03/23/2022 13:47 EST [facility] FLU B RNA Result (FLBRES) Negative Negative 03/23/2022 13:47 EST [facility] RSV RNA Result (RSVRES) Negative Negative 03/23/2022 13:47 EST [facility] Swab ENTIRE NASOPHARYNX / Unknown 03/21/2022 9:20 EST 03/22/2022 21:37 EST Provider Outr Resulting Lab MICROBIOLOGY - GENERAL ORDERABLES [facility] [address] [place] [address] documented in this encounter Visit Diagnoses Not on filedocumented in this encounter Additional Health Concerns Infection Onset Date Last Indicated Resolved Time Influenza 03/21/2022 03/21/2022 03/31/2022 22:1 5 EST documented as of this encounter Care Teams Facilities Manager Relationship Specialty Start Date End Date Kristi Presley DO [address] [place] [address] PCP - General 11/11/21 documented as of this encounter
--- OUTSIDE RECORDS SUMMARY | 2023-11-06 01:56 | XMS_ITS | Encounter Summary ---
Author Organization [facility] Address [address] [place] [address] Care Team Providers Care Business Process Coordinator Name Role Phone Unknown, Provider Primary Care Provider Kristi Presley DO Primary Care Provid er Encounter Details Date Type Department Care Team (Late st Contact Info) Description 09/07/[address] [facility] Pathology & Laboratory Medicine - [address] [address] Outr Resulting Lab, Provider Social History Tobacco Use Types Packs/Day Years Used Date Smoking Tobacco: Never Assessed Sex and Gender Information Value Date Recorded Sex Assigned at Not on file Gender Identity Not on file Sexual Orientation Not on file documented as of this encounter Plan of Treatment Not on file documented as of this encounter Procedures Procedure Name Priority Date/Time Associated Diagnosis Comments HIV 1/2 ANTIGEN AND ANTIBODY, 4TH GENERATION Routine 09/07/2019 12:10 EDT documented in this encounter Results * HIV 1/2 ANTIGEN AND ANTIBODY, 4TH GENERATION (09/07/2019 12:10 EDT) HIV 1 and 2 Antibody/p24 Antigen, 4th Generation Negative Negative 09/08/2019 11:12 EDT [facility] Comment: If acute HIV-1 infection is suspected in a high risk ??patient, submit plasma specimen for HIV-1 RNA quantitation test. Fourth Generation assay performed on the [employer]. Blood VENOUS BLOOD / Unknown 09/07/2019 12:10 EDT 09/07/2019 21:21 EDT Provider Outr Resulting Lab IMMUNOLOGY A ND SEROLOGY ORDERABLES [facility] [address] [place] [address] documented in this encounter Visit Diagnoses Not on filedocumented in this encounter Additional Health Concerns Infection Onset Date Last Indicated Resolved Time Influenza 03/21/2022 03/21/2022 03/31/2022 22:1 5 EST documented as of this encounter Care Teams Business Process Coordinator Relationship Specialty Start Date End Date Unknown, Provider, PCP - General 04/13/19 11/10/21 Kristi Presley DO [address] [place] [address] PCP - General 11/11/21 documented as of this encounter
--- OUTSIDE RECORDS SUMMARY | 2023-11-06 01:56 | XMS_ITS | Encounter Summary ---
Author Organization [facility] Address [address] [place] [address] Care Team Providers Care Hourly Caregiver Name Role Phone Unknown, Provider Primary Care Provider Kristi Presley DO Primary Care Provid er Encounter Details Date Type Department Care Team (Late st Contact Info) Description 09/07/2019 Lab Requisition [facility] Pathology & Laboratory Medicine - [address] [address] Outr Resulting Lab, Provider Social History Tobacco [...] Procedure Name Priority Date/Time Associated Diagnosis Comments ACUTE HEPATITIS PROFILE Routine 09/07/2019 12:10 EDT documented in this encounter Results * ACUTE HEPATITIS PROFILE (09/07/2019 12:10 EDT) Hep B Surface Ag Negative Negative 09/08/2019 10:56 EDT [facility] Hep C Antibody Negative Negative 09/08/2019 10:56 EDT [facility] Hepatitis A Antibody, IgM Negative Negative 09/08/2019 10:56 EDT [facility] Comment: The results of this assay can be falsely lowered due to the consumption of Biotin. Hepatitis B Core Ab, Total Negative Negative 09/08/2019 10:56 EDT [facility] Blood VENOUS BLOOD / Unknown 09/07/2019 12:10 EDT 09/07/2019 21:27 EDT Provider Outr Resulting Lab CHEMISTRY & BLOOD GAS ORDERABLES [facility] [address] [place] [address] documented in this encounter Visit Diagnoses Not on filedocumented in this encounter Additional Health Concerns Infection Onset Date Last Indicated Resolved Time Influenza 03/21/2022 03/21/2022 03/31/2022 22:1 5 EST documented as of this encounter Care Teams Hourly Caregiver Relationship Specialty Start Date End Date Unknown, Provider, PCP - General 04/13/19 11/10/21 Kristi Presley DO [address] [place] [address] PCP - General 11/11/21 documented as of this encounter
--- OUTSIDE RECORDS SUMMARY | 2023-11-06 01:56 | XMS_ITS | Encounter Summary ---
Author Organization [facility] Address [address] [place] [address] Care Team Providers Care Order Runner Name Role Phone Sakina Kristikaylee Rosenberg DO Primary Care Provid er Encounter Details Date Type Department Care Team (Late st Contact Info) Description 03/22/[address] [facility] Pathology & Laboratory Medicine - [facility] [address] [place] [address] Outr Resulting Lab, Provider Social History Tobacco [...] Procedure Name Priority Date/Time Associated Diagnosis Comments ZZCOVID-19 TEST [facility] PCR Today 03/21/2022 9:20 EST COVID-19 TESTING Routine 03/21/2022 9:20 EST documented in this encounter Results * COVID-19 TEST [facility] PCR (03/21/2022 9:20 EST) Swab ENTIRE NASOPHARYNX / Unknown 03/21/2022 9:20 EST 03/22/2022 21:37 EST Provider Outr Resulting Lab MICROBIOLOGY - GENERAL ORDERABLES [facility] [address] [place] [address] * COVID-19 TESTING (03/21/2022 9:20 EST) COVID-19 rt-PCR Result Negative Negative 03/23/2022 13:26 EST [facility] Comment: This test has not been FDA cleared or approved. This test has been authorized by FDA under an EUA for use by authorized laboratories. This test has been authorized only for detection of nucleic acid from 2019-nCoV, not for any other viruses or pathogens. This test is only authorized for the duration of the declaration that circumstances exist justifying the authorization of emergency use of in vitro diagnostic tests for detection and/or diagnosis of 2019-nCoV under section 564(b)(1) of Act, 21 U.S.C ?? 360bbb-3(b) (1), unless the authorization is terminated or revoked sooner. Negative results do not preclude 2019-nCoV infection and should not be used as the sole basis for treatment or other patient management decisions. Negative results must be combined with clinical observations, patient history, and epidemiological information. Performed on the [employer] instrument Performing Lab [facility] 03/23/2022 13:26 EST [facility] Swab ENTIRE NASOPHARYNX / Unknown 03/21/2022 9:20 EST 03/22/2022 21:37 EST Provider Outr Resulting Lab MICROBIOLOGY - GENERAL ORDERABLES [facility] [address] [place] [address] documented in this encounter Visit Diagnoses Not on filedocumented in this encounter Additional Health Concerns Infection Onset Date Last Indicated Resolved Time Influenza 03/21/2022 03/21/2022 03/31/2022 22:1 5 EST documented as of this encounter Care Teams Order Runner Relationship Specialty Start Date End Date Kristi Presley DO [address] [place] [address] PCP - General 11/11/21 documented as of this encounter
--- OUTSIDE RECORDS SUMMARY | 2023-11-06 01:56 | XMS_ITS | Encounter Summary ---
Author Organization [facility] Address [address] [place] [address] Care Team Providers Care Call Center Supervisor Name Role Phone Unknown, Provider Primary Care Provider Kristi Presley DO Primary Care Provid er Encounter Details Date Type Department Care Team (Late st Contact Info) Description 09/08/2019 Lab Requisition [facility] Pathology & Laboratory Medicine - [address] [address] Aaliyah Cobos [address] [place] [address] [place] [phone] Encounter for other general examination Social History Tobacco Use Types Packs/Day Years Used Date Smoking Tobacco: Never Assessed Sex and Gender Information Value Date Recorded Sex Assigned at Not on file Gender Identity Not on file Sexual Orientation Not on file documented as of this encounter Plan of Treatment Not on file documented as of this encounter Procedures Procedure Name Priority Date/Time Associated Diagnosis Comments PAP TEST Today 09/07/2019 11:40 EDT Encounter for other general examination documented in this encounter Results * PAP TEST (09/07/2019 11:40 EDT) Specimens A. Cervix and/or Endocervix , ThinPrep Imaging System with Manual Evaluation 09/15/2019 9:19 EDT [facility] Specimen Adequacy Satisfactory for Evaluation - transformation zone component present 09/15/2019 9:19 EDT [facility] General Categorization Epithelial Cell Abnormality 09/15/2019 9:19 EDT [facility] Descriptive Diagnosis Squamous Cell Abnormality - Low grade squamous intraepithelial lesion (LSIL). 09/15/2019 9:19 EDT [facility] Attestation By the signature below, the attending physician certifies that they have personally conducted a gross and/or microscopic examination of the described specimens and rendered or confirmed the above diagnosis. 09/15/2019 9:19 EDT [facility] at 0919 Educational Comments [facility] recommends following ASCCP's 2012 Updated Consensus Guidelines for the Management of Abnormal Cervical Cancer Screening Tests and Cancer Precursors (JLGTD, 2013; 17(5):S1-S27). Consensus guidelines are available online at www.asccp.org. 09/15/2019 9:19 EDT [facility] Clinical History NONE 09/15/19 9:19 EDT [facility] Scanned Images 09/15/2019 9:19 EDT [facility] Papanicolaou smear specimen (specimen) CERVIX UTERI STRUCTURE / Unknown 09/07/2019 11:40 EDT 09/08/2019 10:39 EDT Aaliyah Cobos PATHOLOGY ORDERABLES [facility] [address] [place] [address] documented in this encounter Visit Diagnoses Diagnosis Encounter for other general examination documented in this encounter Additional Health Concerns Infection Onset Date Last Indicated Resolved Time Influenza 03/21/2022 03/21/2022 03/31/2022 22:1 5 EST documented as of this encounter Care Teams Call Center Supervisor Relationship Specialty Start Date End Date Unknown, Provider, PCP - General 04/13/19 11/10/21 Kristi Presley DO [address] [place] [address] PCP - General 11/11/21 documented as of this encounter
--- OUTSIDE RECORDS SUMMARY | 2023-11-06 01:56 | XMS_ITS | Encounter Summary ---
Author Organization [facility] Address [address] [place] [address] Care Team Providers Care Print Production Manager Name Role Phone Sakina Kristikaylee Rosenberg DO Primary Care Provid er Encounter Details Date Type Department Care Team (Late st Contact Info) Description 11/21/2021 Lab Requisition [facility] Pathology & Laboratory Medicine - [address] [address] Jay Campbell MD [address] [place] [address], [address] [place] [address] Encounter for other general examination Social History [...] Procedure Name Priority Date/Time Associated Diagnosis Comments SURGICAL PATHOLOGY Today 11/21/2021 13 :13 EDT Encounter for other general examination documented in this encounter Results * SURGICAL PATHOLOGY (11/21/2021 13:13 EDT) Note to Patient The following pathology results have been interpreted by your pathologist and may be available to you before your health provider has had the opportunity to review them. Please allow time for your provider to receive these results and explore management options, if applicable. 11/26/2021 8:59 EDT [facility] Final Diagnosis A. DUODENUM, BIOPSY: - Enteric mucosa with no significant diagnostic abnormality. B. STOMACH, ANTRUM, BIOPSY: - Oxyntic-type mucosa with no significant diagnostic abnormality. C. STOMACH, BODY, BIOPSY: - Oxyntic-type mucosa with no significant diagnostic abnormality. 11/26/2021 8:59 [facility] Attestation There was significant resident/fellow involvement in the diagnostic evaluation of this case. By the signature below, the attending physician certifies that they have personally conducted a gross and/or microscopic examination of the described specimens and rendered or confirmed the above diagnosis. 11/26/2021 8:59 [facility] at 0859 Clinical History Epigastric pain; GERD 11/26/2021 8:59 [facility] Gross Description A. Received in formalin labelled with proper patient identification (initials C, M) and duodenum bx x 2 are two valle tissues (0.1 x 0.1 x 0.1 cm to 0.1 x 0.1 x 0.1 cm). Entirely submitted in A1. B. Received in formalin labelled with proper patient identification (initials C, M) and antrum bx x 2 are two valle tissues (0.3 x 0.1 x 0.1 cm and 0.1 x 0.1 x 0.1 cm). Entirely submitted in B1. C. Received in formalin labelled with proper patient identification (initials C, M) and body of stomach x 2 are 4 valle tissues (0.2 x 0.1 x 0.1 cm to 0.1 x 0.1 x 0.1 cm). Entirely submitted in C1. JEFF LEDESMA 11/22/2021 9:14 11/26/2021 8:59 [facility] Resident/Gurinder w: Mode Lea MD 11/26/2021 8:59 [facility] Performing Lab [facility] 11/26/2021 8:59 [facility] Scanned Images 11/26/2021 8:59 [facility] Tissue ENTIRE STOMACH / Unknown 11/21/2021 13:13 EDT 11/21/2021 22:13 EDT Tissue specimen (specimen) STOMACH STRUCTURE / Unknown 11/21/2021 13:13 EDT 11/21/2021 22:13 EDT Tissue specimen (specimen) STOMACH STRUCTURE / Unknown 11/21/2021 13:13 EDT 11/21/2021 22:13 EDT Jay Campbell MD PATHOLOGY ORDERABLES [facility] [address] [place] [address] documented in this encounter Visit Diagnoses Diagnosis Encounter for other general examination documented in this encounter Additional Health Concerns Infection Onset Date Last Indicated Resolved Time Influenza 03/21/2022 03/21/2022 03/31/2022 22:1 5 EST documented as of this encounter Care Teams Print Production Manager Relationship Specialty Start Date End Date Kristi Presley DO [address] [place] [address] PCP - General 11/11/21 documented as of this encounter
--- OUTSIDE RECORDS SUMMARY | 2023-11-06 01:56 | XMS_ITS | Referral Summary ---
Author Organization [facility] Address [address] [place] [address] Care Team Providers Care Business Systems Advisor Name Role Phone Sakina Kristikaylee Rosenberg DO Primary Care Provid er Social History Tobacco Use Types Packs/Day Years Used Date Smoking Tobacco: Never Assessed Interpersonal Safety Answer Date Record ed Physically Hurt Never 03/06/2020 Verbally Threaten Not on file 03/06/2020 Sex and Gender Information Value Date Recorded Sex Assigned at Not on file Gender Identity Not on file Sexual Orientation Not on file Plan of Treatment Not on file Care Teams Business Systems Advisor Relationship Specialty Start Date End Date Kristi Presley DO [address] [place] [address] PCP - General 11/11/21
--- OUTSIDE RECORDS SUMMARY | 2023-11-06 01:56 | XMS_ITS | Encounter Summary ---
Author Organization [facility] Address [address] [place] [address] Care Team Providers Care Transonic Engineer Name Role Phone Unknown, Provider Primary Care Provider [phone] Kristi Presley DO Primary Care Provid er Encounter Details Date Type Department Care Team (Late st Contact Info) Description 09/07/2019 Lab Requisition [facility] Pathology & Laboratory Medicine - [facility] [address] [place] [address] Outr Resulting Lab, Provider Social History Tobacco [...] Procedure Name Priority Date/Time Associated Diagnosis Comments SYPHILIS SEROLOGY Routine 09/07/2019 12: 10 EDT documented in this encounter Results * SYPHILIS SEROLOGY (09/07/2019 12:10 EDT) Syphilis Serology Negative Negative 09/08/2019 11:[address] [facility] Blood VENOUS BLOOD / Unknown 09/07/2019 12:10 EDT 09/07/2019 21:22 EDT Provider Outr Resulting Lab IMMUNOLOGY A ND SEROLOGY ORDERABLES [facility] [address] [place] [address] documented in this encounter Visit Diagnoses Not on filedocumented in this encounter Additional Health Concerns Infection Onset Date Last Indicated Resolved Time Influenza 03/21/2022 03/21/2022 03/31/2022 22:1 5 EST documented as of this encounter Care Teams Transonic Engineer Relationship Specialty Start Date End Date Unknown, Provider, PCP - General 04/13/19 11/10/21 Kristi Presley DO [address] [place] [address] PCP - General 11/11/21 documented as of this encounter
--- OUTSIDE RECORDS SUMMARY | 2023-11-06 01:56 | XMS_ITS | Encounter Summary ---
Author Organization [facility] Address [address] [place] [address] Care Team Providers Care Gauger Delivery Name Role Phone Unknown, Provider Primary Care Provider Kristi Presley DO Primary Care Provid er Encounter Details Date Type Department Care Team (Late st Contact Info) Description 09/27/2019 Lab Requisition [facility] Pathology & Laboratory Medicine - [facility] [address] [place] [address] Outr Resulting Lab, Provider Social History Tobacco [...] Comments ZZCOVID-19 TEST [facility] PCR Today 09/27/2019 10:00 EDT COVID-19 TESTING Routine 09/27/2019 10:0 0 EDT documented in this encounter Results * COVID-19 TEST [facility] PCR (09/27/2019 10:00 EDT) Swab ENTIRE NASOPHARYNX / Unknown 09/27/2019 10:00 EDT 09/27/2019 15:32 EDT Provider Outr Resulting Lab MICROBIOLOGY - GENERAL ORDERABLES [facility] [address] [place] [address] * COVID-19 TESTING (09/27/2019 10:00 EDT) COVID-19 rt-PCR Result Negative Negative 09/28/2019 14:16 EDT [facility] Comment: This test has not [...] history, and epidemiological information. Performed on the [employer] instrument Performing Lab [facility] 09/28/2019 14:16 EDT [facility] Swab ENTIRE NASOPHARYNX / Unknown 09/27/2019 10:00 EDT 09/27/2019 15:32 EDT Provider Outr Resulting Lab MICROBIOLOGY - GENERAL ORDERABLES [facility] [address] [place] [address] documented in this encounter Visit Diagnoses Not on filedocumented in this encounter Additional Health Concerns Infection Onset Date Last Indicated Resolved Time Influenza 03/21/2022 03/21/2022 03/31/2022 22:1 5 EST documented as of this encounter Care Teams Gauger Delivery Relationship Specialty Start Date End Date Unknown, Provider, PCP - General 04/13/19 11/10/21 Kristi Presley DO [address] [place] [address] PCP - General 11/11/21 documented as of this encounter
--- OUTSIDE RECORDS SUMMARY | 2023-11-06 01:56 | XMS_ITS | Encounter Summary ---
Author Organization [facility] Address [address] [place] [address] Care Team Providers Care Information Tech Name Role Phone Unknown, Provider Primary Care Provider Kristi Presley DO Primary Care Provid er Encounter Details Date Type Department Care Team (Late st Contact Info) Description 10/17/2021 Lab Requisition [facility] Pathology & Laboratory Medicine - [facility] [address] [place] [address] Aaliyah Cobos [address] [place] [address] [place] [phone] Encounter for other general examination Social History [...] Procedure Name Priority Date/Time Associated Diagnosis Comments CHLAMYDIA/N. GONORRHOEAE AMPLIFIED NUCLEIC ACID, THINPREP Today 10/16/2021 14:40 EDT PAP TEST Today 10/16/2021 2:40 EDT Encounter for other general examination HPV DNA DETECTION WITH GENOTYPING, PCR Today 10/16/2021 2:40 EDT Encounter for other general examination documented in this encounter Results * CHLAMYDIA/N. GONORRHOEAE AMPLIFIED RNA, THINPREP (10/16/2021 14:40 EDT) Neisseria gonorrhoeae Result Negative Negative 10/19/2021 8:15 EDT [facility] Chlamydia trachomatis Result Negative Negative 10/19/2021 8:15 EDT [facility] Papanicolaou smear specimen (specimen) CERVIX UTERI STRUCTURE / Unknown 10/16/2021 14:40 EDT 10/18/2021 11:21 EDT Aaliyah Cobos MICROBIOLOGY - GENER AL ORDERABLES Performing Organization Address [facility] Co de Phone Number [facility] [address] [place] [address] * HUMAN PAPILLOMAVIRUS (HPV) DETECTION-HIGH RISK TYPES (10/16/2021 2:40 EDT) HPV other High Risk types, PCR Negative Negative 10/24/2021 21:28 EDT [facility] Comment:No E6 or E7 mRNA is detected from HPV types 16,18,31,33,35,39,45,51,52,56,58,59,66, and 68 by monotype setter mediated amplification. Papanicolaou smear specimen (specimen) CERVIX UTERI STRUCTURE / Unknown 10/16/2021 2:40 EDT 10/23/2021 11:08 EDT Aaliyah Cobos MICROBIOLOGY - GENER AL ORDERABLES Performing Organization Address City/[facility] Co de Phone Number [facility] [address] [place] [address] * PAP TEST (10/16/2021 2:40 EDT) Specimens A. Cervix and/or Endocervix , ThinPrep Imaging System with Manual Evaluation 10/24/2021 21:28 EDT [facility] Specimen Adequacy Satisfactory for Evaluation - transformation zone component present 10/24/2021 21:28 EDT [facility] General Categorization Negative for intraepithelial lesion or malignancy 10/24/2021 21:28 EDT [facility] Attestation . 10/24/2021 21:28 EDT [facility] at 2128 Clinical History SEE BELOW 10/25/19 21:28 EDT [facility] HPV The result for the Human Papillomavirus (HPV) Detection-High Risk Types is Negative. No E6 or E7 mRNA is detected from HPV types 16,18,31,33,35,39 ,45,51,52,56,58,5 9,66, and 68 by monotype setter mediated amplification.Kaylee ting was performed on specimen [id number] and was resulted on 10/24/20212126 EDT by JARRELL, LAB INSTRUMENT RESULTS IN 10/24/2021 21:28 EDT [facility] Performing Lab [facility] 10/24/2021 21:28 T [facility] Scanned Images 10/24/2021 21:28 EDT [facility] Papanicolaou smear specimen (specimen) CERVIX UTERI STRUCTURE / Unknown 10/16/2021 2:40 EDT 10/18/2021 15:31 EDT Aaliyah Cobos PATHOLOGY ORDERABLES Performing Organization Address City/State/[facility] Co de Phone Number [facility] [address] [place] [address] documented in this encounter Visit Diagnoses Diagnosis Encounter for other general examination documented in this encounter Additional Health Concerns Infection Onset Date Last Indicated Resolved Time Influenza 03/21/2022 03/21/2022 03/31/2022 22:1 5 EST documented as of this encounter Care Teams Information Tech Relationship Specialty Start Date End Date Unknown, Provider, PCP - General 04/13/19 11/10/21 Kristi Presley DO [address] [place] [address] PCP - General 11/11/21 documented as of this encounter
--- OUTSIDE RECORDS SUMMARY | 2023-11-06 01:56 | XMS_ITS | Clinical Summary ---
Author Organization [facility] Address [address] [place] [address] Care Team Providers Care Cobol Developer Name Role Phone Patienceruben Kristikaylee Rosenberg DO Primary Care Provid er Social History Tobacco Use Types Packs/Day Years Used Date Smoking Tobacco: Never Assessed Interpersonal Safety Answer Date Record ed Physically Hurt Never 03/06/2020 Verbally Threaten Not on file 03/06/2020 Sex and Gender Information Value Date Recorded Sex Assigned at Not on file Gender Identity Not on file Sexual Orientation Not on file Plan of Treatment Health Maintenance Due Date Last Done Comments Hepatitis C Screen 1995 Hepatitis B Vaccine (1 of 3 - 19+ 3-dose series) 12/06 COVID-19 Vaccine ( season) 2022 Care Teams Cobol Developer Relationship Specialty Start Date End Date Kristi Presley DO [address] [place], [place] [id number] PCP - General 11/11/21
--- OUTSIDE RECORDS SUMMARY | 2023-11-06 01:56 | XMS_ITS | Encounter Summary ---
Author Organization [facility] Address [address] [place] [address] Care Team Providers Care Senior Payroll Specialist Name Role Phone Unknown, Provider Primary Care Provider [phone] Kristi Presley DO Primary Care Provid er Encounter Details Date Type Department Care Team (Late st Contact Info) Description 09/07/2019 Lab Requisition [facility] Pathology & Laboratory Medicine - [address] [address] Outr Resulting Lab, Provider Social History Tobacco [...] Comments CHLAMYDIA/N. GONORRHOEAE AMPLIFIED NUCLEIC ACID, THINPREP Routine 09/07/2019 11:40 EDT documented in this encounter Results * CHLAMYDIA/N. GONORRHOEAE AMPLIFIED RNA, THINPREP (09/07/2019 11:40 EDT) Neisseria gonorrhoeae Result Negative Negative 09/08/2019 13:34 EDT [facility] Chlamydia trachomatis Result Negative Negative 09/08/2019 13:34 EDT [facility] Papanicolaou smear specimen (specimen) CERVIX UTERI STRUCTURE / Unknown 09/07/2019 11:40 EDT 09/08/2019 7:29 EDT Provider Outr Resulting Lab MICROBIOLOGY - GENERAL ORDERABLES [facility] [address] [place] [address] documented in this encounter Visit Diagnoses Not on filedocumented in this encounter Additional Health Concerns Infection Onset Date Last Indicated Resolved Time Influenza 03/21/2022 03/21/2022 03/31/2022 22:1 5 EST documented as of this encounter Care Teams Senior Payroll Specialist Relationship Specialty Start Date End Date Unknown, Provider, PCP - General 04/13/19 11/10/21 Kristi Presley DO [address] [place] [id number] PCP - General 11/11/21 documented as of this encounter
[2023-11-06 13:50] LABS: ALT 28 U/L (14-59); AST 16 U/L (15-37); Albumin 3.9 g/dL (3.4-5.0); Alkaline Phosphatase 72 U/L (46-116); Anion Gap 10.5 mmol/L (3-11); BUN 12 mg/dL (7-18); Bilirubin, Total 0.36 mg/dL (0.2-1.0); CO2 25.5 mmol/L (21.0-32.0); CREATININE 0.9 mg/dL (0.55-1.02); Calcium 8.7 mg/dL (8.5-10.1); Chloride 105 mmol/L (98-107); Glucose 111 mg/dL (74-106); Potassium 3.6 mmol/L (3.5-5.1); Sodium 141 mmol/L (136-145); TSH (W/Ref FT4) 1.38 uIU/mL (0.36-3.74); Total Protein 8.2 g/dL (6.4-8.2)
[2023-11-06 23:08] LABS: LH 9.3 mIU/mL (See Note); Prolactin 11.8 ng/mL (See Note)
== END 2023-11-06 01:53 | disposition home or self-care (01) ==
LOC: LBO 01:52
PROVIDERS: PCP Student in an Organized Health Care Education/Training Program; Visit Provider Obstetrics & Gynecology
DX: N92.6 Irregular menstruation, unspecified (principal)
CPT/HCPCS: 36415; 80053; 83001; 83002; 84146; 84443

== ENCOUNTER 2024-02-16 16:33 | Outpatient (REF) | payer BC, SELFPAY | END 2024-02-16 16:34 | disposition home or self-care (01) | LOC: LBN 16:33 | PROVIDERS: PCP Student in an Organized Health Care Education/Training Program; Visit Provider Student in an Organized Health Care Education/Training Program | DX: J02.9 Acute pharyngitis, unspecified (principal) | CPT/HCPCS: 87070 ==

== ENCOUNTER 2024-03-18 02:05 | Outpatient (CLI) | payer BC, SELFPAY ==
[2024-03-18 15:38] LABS: Abs Immature Grans 0.03 10^3/uL (0.0-0.06); Absolute Basophil Count 0.04 10^3/uL (0.0-0.2); Absolute Eosinophil Count 0.24 10^3/uL (0.0-0.7); Absolute Lymphocyte Count 2.19 10^3/uL (1.2-3.4); Absolute Monocyte Count 0.48 10^3/uL (0.1-0.8); Absolute Neutrophil Count 6.44 10^3/uL (1.2-6.7); Basophils % 0.4 %; Eosinophils % 2.5 %; HGB 14.1 g/dL (11.2-15.7); Immature Grans % 0.3 %; Lymphocytes % 23.2 %; MCH 29.3 pg (27.0-33.0); MCHC 32.8 % (32.0-36.0); MCV 89 fL (80-95); MPV 9.9 fL (8.0-11.0); Monocytes % 5.1 %; Neutrophils % 68.5 %; Platelet Count 294 10^3/uL (130-400); RBC 4.82 10^6/uL (3.93-5.22); RDW 13.1 % (11.7-14.6); RDW-SD 42.8 fL; WBC 9.42 10^3/uL (4.4-10.8)
[2024-03-18 16:59] LABS: ALT 30 U/L (14-59); AST 20 U/L (15-37); Alkaline Phosphatase 80 U/L (46-116); Anion Gap 7.7 mmol/L (3-11); BUN 13 mg/dL (7-18); Bilirubin, Total 0.45 mg/dL (0.2-1.0); CO2 30.3 mmol/L (21.0-32.0); CREATININE 0.9 mg/dL (0.55-1.02); Calcium 8.9 mg/dL (8.5-10.1); Chloride 104 mmol/L (98-107); Estimated GFR 88.75 (mL/min/1.73m2); Glucose 81 mg/dL (74-106); Potassium 3.7 mmol/L (3.5-5.1); Sodium 142 mmol/L (136-145); Total Protein 8.5 g/dL (6.4-8.2)
== END 2024-03-18 02:06 | disposition home or self-care (01) ==
LOC: LBO 02:05
PROVIDERS: PCP Student in an Organized Health Care Education/Training Program; Referring Provider Student in an Organized Health Care Education/Training Program; Visit Provider Student in an Organized Health Care Education/Training Program
DX: R19.5 Other fecal abnormalities (principal); Z91.89 Other specified personal risk factors, not elsewhere classified; Z22.1 Carrier of other intestinal infectious diseases
CPT/HCPCS: 36415; 80053; 85025

== ENCOUNTER 2024-03-19 13:00 | Outpatient (REF) | payer BC, SELFPAY | END 2024-03-19 13:01 | disposition home or self-care (01) | LOC: LBN 13:00 | PROVIDERS: PCP Student in an Organized Health Care Education/Training Program; Visit Provider Student in an Organized Health Care Education/Training Program | DX: R19.5 Other fecal abnormalities (principal); Z22.1 Carrier of other intestinal infectious diseases; Z91.89 Other specified personal risk factors, not elsewhere classified; K58.9 Irritable bowel syndrome, unspecified | CPT/HCPCS: 87177 ==

== ENCOUNTER 2024-09-28 03:04 | Outpatient (CLI) | payer BC, SELFPAY ==
[2024-09-28 17:41] LABS: TSH (W/Ref FT4) 1.14 uIU/mL (0.36-3.74); Vitamin B12 469 pg/mL (193-986); Vitamin D 25 Total 17 ng/mL (30-100)
== END 2024-09-28 03:05 | disposition home or self-care (01) ==
LOC: LBO 03:04
PROVIDERS: PCP Nurse Practitioner Family; Referring Provider Nurse Practitioner Family; Visit Provider Nurse Practitioner Family
DX: R53.83 Other fatigue (principal); F41.9 Anxiety disorder, unspecified; F32.9 Major depressive disorder, single episode, unspecified
CPT/HCPCS: 36415; 82306; 82607; 84443

== ENCOUNTER 2024-10-12 15:02 | Outpatient (REF) | payer BC, SELFPAY | END 2024-10-12 15:03 | disposition home or self-care (01) | LOC: LBN 15:02 | PROVIDERS: PCP Nurse Practitioner Family; Visit Provider Nurse Practitioner Family | DX: N89.8 Other specified noninflammatory disorders of vagina (principal) | CPT/HCPCS: 87480; 87510; 87660 ==

== ENCOUNTER 2024-10-12 17:14 | Outpatient (CLI) | payer BC, SELFPAY ==
[2024-10-12 15:26] LABS: Abs Immature Grans 0.02 10^3/uL (0.0-0.06); HCT 40.5 % (36.0-46.0); HGB 13.6 g/dL (11.2-15.7); Immature Grans % 0.2 %; MCH 29.0 pg (27.0-33.0); MCHC 33.6 % (32.0-36.0); MCV 86 fL (80-95); MPV 10.0 fL (8.0-11.0); Platelet Count 310 10^3/uL (130-400); RBC 4.69 10^6/uL (3.93-5.22); RDW 13.2 % (11.7-14.6); RDW-SD 41.2 fL; WBC 9.83 10^3/uL (4.4-10.8)
[2024-10-12 15:48] LABS: Mono Screening Negative (Negative)
[2024-10-12 16:28] LABS: ALT 22 U/L (14-59); AST 16 U/L (15-37); Albumin 4.0 g/dL (3.4-5.0); Alkaline Phosphatase 67 U/L (46-116); Anion Gap 13.0 mmol/L (3-11); BUN 15 mg/dL (7-18); Bilirubin, Total 0.4 mg/dL (0.2-1.0); CO2 24.0 mmol/L (21.0-32.0); Calcium 8.9 mg/dL (8.5-10.1); Chloride 103 mmol/L (98-107); Estimated GFR 119.99 (mL/min/1.73m2); Glucose 84 mg/dL (74-106); Potassium 3.6 mmol/L (3.5-5.1); Sodium 140 mmol/L (136-145); Total Protein 8.1 g/dL (6.4-8.2)
== END 2024-10-12 17:15 | disposition home or self-care (01) ==
PROVIDERS: PCP Nurse Practitioner Family; Visit Provider Nurse Practitioner Family
DX: R50.9 Fever, unspecified (principal)
CPT/HCPCS: 36415; 80053; 85025; 86308

== ENCOUNTER 2024-11-22 14:20 | Outpatient (CLI) | payer BC, SELFPAY ==
[2024-11-22 14:19] LABS: Abs Immature Grans 0.04 10^3/uL (0.0-0.06); HCT 41.2 % (36.0-46.0); HGB 13.8 g/dL (11.2-15.7); Immature Grans % 0.5 %; MCH 29.2 pg (27.0-33.0); MCHC 33.5 % (32.0-36.0); MCV 87 fL (80-95); MPV 10.3 fL (8.0-11.0); Platelet Count 293 10^3/uL (130-400); RBC 4.72 10^6/uL (3.93-5.22); RDW 13.4 % (11.7-14.6); RDW-SD 42.8 fL; WBC 8.81 10^3/uL (4.4-10.8)
== END 2024-11-22 14:21 | disposition home or self-care (01) ==
LOC: LBO 14:21
PROVIDERS: PCP Nurse Practitioner Family; Visit Provider Obstetrics & Gynecology
DX: Z01.818 Encounter for other preprocedural examination (principal)
CPT/HCPCS: 36415; 86850; 86900; 86901; 85025

== ENCOUNTER 2024-11-23 10:51 | Day surgery (SDC) | payer BC, SELFPAY ==
[2024-11-23] VITALS (19 sets, daily range): BP systolic 77–133; BP diastolic 31–86; PULSE 63–102; RESP 12–27; TEMP 36.2–36.6; O2SAT 91–100; BMI 40.6
[2024-11-23] MEDS: DOXYCYCLINE 100 MG in Normal Saline 100 ML IVPB (11:34)
[2024-11-23] MEDS: Lactated Ringers 1,000 ML 125 ML IV (11:38)
--- NOTE | 2024-11-23 12:19 | ANES.PREOP_ITS ---
General Info Date of Service Date Performed: 11/23/24 Height: 5 ft 3 in Weight: 104.2 kg Body Mass Index (BMI): 40.6 Surgical Procedure: Operation Date: 11/23/24 12:10 Proposed Procedure Side Surgeon p D&C Suction Aaliyah Cobos DO Meds Allergies and Home Medications Allergies Allergy/AdvReac Type Severity Reaction Status Date / Time amoxicillin Allergy Unknown Hives Verified 11/23/24 11:08 sulfamethoxazole (From AdvReac Nausea, Verified 11/23/24 11:08 Bactrim) vomiting, chills trimethoprim (From Bactrim) AdvReac Nausea, Verified 11/23/24 11:08 vomiting, chills Home Medication ?Medication ?Instructions ?Recorded hydroxyzine HCl 25 mg tablet 25 - 50 mg (1 - 2 x 25 mg ) PO HS 03/04/23 PRN IC #60 tab-caps phenazopyridine 200 mg tablet 200 mg PO TID PRN pain # 20 tabs 06/08/23 (Pyridium) propranolol 10 mg tablet 10 - 20 mg (1 - 2 x 10 mg) P O BID 06/29/23 PRN anxiety, panic response #120 tabs cephalexin 250 mg capsule 250 mg PO ONCE PRN 09/04/23 famotidine 40 mg tablet 40 mg PO BID #60 tabs metformin 750 mg tablet,extended 750 mg PO DAILY #90 t abs 07/13/24 release 24 hr ondansetron HCl 4 mg tablet 4 mg PO Q4H PRN nausea and 10/11/24 vomiting 3 doses #20 tabs Current Visit Medications: Current Medications Generic Name Dose Route Start Last Admin Trade Name Jose M PRN Reason Stop Dose Admin Ringer's Solution 1,000 mls @ 125 mls/hr 11/23/24 06:00 11/23/24 11:38 IV 11/23/24 23:59 125 mls/hr INFUSION LALI Administration Doxycycline Hyclate 100 mg/ 100 mls @ 100 mls/hr 11/23/24 06:00 11/23/24 11:34 Sodium Chloride IVPB 11/23/24 23:59 100 mls/hr DIRECTED LALI Administration IV Miscellaneous Supplies 1 each 11/23/24 06:00 Iv Access IV 11/23/24 23:59 DIRECTED LALI Sodium Chloride 0 ml 11/23/24 06:00 Normal Saline Flush 10 Ml Syr IV 11/23/24 23:59 PRN PRN Sodium Chloride 0 ml 11/23/24 06:00 Normal Saline 10 Ml Vial IJ 11/23/24 23:59 DIRECTED PRN Sterile Water 0 ml 11/23/24 06:00 Water,Injection,Sterile 10 Ml Vial IJ 11/23/24 23:59 DIRECTED PRN PFSH Active Problems Active Problems: Problem Status Onset Code Blighted ovum Acute O02.0 Otalgia, left ear Acute H92.02 Vaginal discharge Acute N89.8 Sore throat Acute J02.9 Fever Acute R50.9 Delayed menses Acute N91.0 Infertility management Acute Z31.9 Family history of sleep apnea Acute Z82.0 Fatigue Acute R53.83 Interstitial cystitis Acute N30.10 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 Atypical nevus of female breast Acute D22.5 Menstrual irregularity Acute N92.6 Recurrent streptococcal tonsillitis Acute J03.01 Tonsil stone Acute J35.8 History of tachycardia Acute Z87.898 Family history of cardiac disorder in father Acute Z82.49 Antibiotic long-term use Acute Z79.2 Pain of acromioclavicular joint after trauma Acute M25.519 AC joint pain Acute M25.519 Pain of right clavicle Acute M89.8X1 Myalgia Acute M79.10 Crush injury Acute T14.8XXA Injury caused by pulling Acute X50.9XXA Work related injury Acute Y99.0 OCD (obsessive compulsive disorder) Acute F42.9 Severe shoulder pain Acute M25.519 Pharyngitis due to Streptococcus species Acute J02.0 COVID-19 Acute U07.1 Wrist pain, left Acute M25.532 Abdominal pain Acute R10.9 Pelvic floor dysfunction Acute M62.89 Anxiety and depression Chronic F41.9, F32.9 Family hx of colon cancer Acute Z80.0 Heart murmur Acute R01.1 Medical History Medical History PCOS (polycystic ovarian syndrome) Family history of bowel obstruction Sensation of pressure in bladder area Cloudy urine Yeast dermatitis Screen for STD (sexually transmitted disease) Amenorrhea Encounter for monitoring long-term proton pump inhibitor therapy GERD (gastroesophageal reflux disease) History of abnormal cervical Pap smear ~ 2019, with no Tx as expected recovery (but unclear why PAP in 1st place unless concern for DDx of vaginismus) Vaginismus Hx, with resolution post focused effort Hx of chronic ear infection tubes Scoliosis Family history of thyroid cancer Paternal aunt. Family hx-breast malignancy Paternal GM Dysuria Chest pain Per pt. stated this is r/t to her anxiety and acid reflux Irritable bowel syndrome notices she will often feel ill after meals .. possible gastroparesis? Hemorrhage of rectum and anus Arthralgia Lower Leg Surgical History Surgical History Hx of esophagogastroduodenoscopy Hx of colonoscopy Tobacco Smoking/Tobacco Use Status: Never Passive smoking exposure: No Second hand exposure: Yes Alcohol Alcohol Intake: current Alcohol intake frequency: holidays/special occasions only Substance Use Substance use: Never Substance use type: does not use Details: alcohol; 09/04 Prental History History 1 Para Hx # Term Pregnancies Multiple births Hx # Pregnancies Ectopic pregnancies AB induced Hx Number of Living Children AB spontaneous 1 Past Pregnancies Del. Date GA/Weeks # Preg Succ Route Wgt Sex Labor Lgth Anesth esia Location [facility] 11/17/24 No Vital Signs and Lab Results Vital Signs Most Recent Vital Signs in EMR: Most Recent Vital Signs Temp Pulse Resp BP Pulse Ox 36.2 C L 102 H 18 133/86 98 11/23/24 11:14 11/23/24 11:14 11/23/24 11:14 11/23/24 11:14 11/23/24 11:14 Lab Results Blood Type / Crossmatch: Antibody Screen NEGATIVE 11/22/24 Complete Blood Count: WBC, (4.4-10.8) 8.81 10^3/uL 11/22/24, 14:05 RBC, (3.93-5.22) 4.72 10^6/uL 11/22/24, 14:05 Hgb, (11.2-15.7) 13.8 g/dL 11/22/24, 14:05 Hct, (36.0-46.0) 41.2 % 11/22/24, 14:05 Plt Count, (130-400) 293 10^3/uL 11/22/24, 14:05 Anesthesia Assessment and Plan Anesthesia History Personal History: No History of Anesthesia Complications Family History: No Family History of Anesthesia Complications Exercise Tolerance Exercise Tolerance: Metabolic Equivalents>4 Pertinent Negatives Pertinent Negatives: Other ((+) Reflux) Cardiac & Pulmonary Exam Cardiac Exam: Normal S1/S2 Heart Sounds Pulmonary Exam: Clear Bilateral Breath Sounds Implantable Cardiac Device Does patient have a Pacemaker or an ICD?: No Airway Exam Known Difficult Airway: No Mallampati Class: 1 Mouth Opening: Normal (> 3cm) Thyromental Distance: Greater than 3 cm Neck Range of Motion: Full ROM Neck Circumference: Normal Teeth Condition: Normal Dentition ASA Classification ASA Score: ASA 2 Emergency Case?: No NPO Status NPO Status: NPO Clears >2 hours, Solids >8 hours Status Status: Confirmed (ectopic) Anesthesia Plan Resuscitation Status: Full Code Anesthesia Technique: General Anesthesia Airway Planned: LMA Monitors Used: Standard Monitors and SedLine
--- NOTE | 2024-11-23 12:51 | POCSPONT_PTH ---
PATIENT: Bhavana Munguia LOC: [facility] U#:[id number] AGE/SX: 28/F ROOM: RE11/23/[address]: Aaliyah Cobos DO : 1995 BED: DIS: 11/23/2024 SPEC #: [id number] RECD: 11/23/24 16:00 STATUS: GALA RE #: [id number] ALICIA: 11/23/24 12:[address]: Aaliyah Cobos DEPT: Surgical Specimen RECD BY: Barbara Klein ENTERED: 11/23/24 16:01 SP TYPE: POCTRISTON ANDERSON DR: Rachelle Cobian APRN Tissues: 1 - ,SPONTANEOUS Procedures: GROSS AND MICRO LEVEL 4 IMMUNOPEROXIDASE STAIN Comments: [id number]
--- NOTE | 2024-11-23 13:09 | ROE_ITS ---
Operative Note Operative Note PRE-OP DIAGNOSIS: Blighted ovum POST-OP DIAGNOSIS: same PROCEDURE: Dilation and curettage with suction SURGEON: Aaliyah Cobos ANESTHESIA TYPE: General LMA/ETT Refer to Anesthesia Record ESTIMATED BLOOD LOSS: 100 PATHOLOGY: other (1. Products of conception) COMPLICATIONS: None Patient was transported to: PACU Patient's condition: stable Indications: Blighted ovum Findings: 6-8-week size uterus. Moderate tissue return from the uterus. Procedure Description: After full informed consent was obtained, patient was taken the operating suite. She did receive preoperative doxycycline for antibiotic prophylaxis. She had pneumatic compression stockings for DVT prophylaxis. She was placed in dorsal supine position and general anesthesia administered via LMA. At this point she was placed in the modified dorsolithotomy position in yellowfin stirrups and prepped and draped in usual sterile fashion. Her bladder had been previously emptied prior to coming to the OR. A timeout was held. Exam under anesthesia revealed a uterus that was midline and mobile. It was roughly 6 to 8 weeks size. There were no evidence of adnexal masses. At this point speculum was inserted into the vaginal vault and an Allis clamp used to grasp the anterior lip of the cervix. The cervical os dilated to the point that a 9 Jordanian curved suction curette could be passed without difficulty. With a suction curette, and 3 passes, the uterine cavity was emptied of its contents. A sharp curettage was performed with a banjo curette to the point that the coarse cry of the uterus could be felt in all 4 quadrants. Suction curette was again used to remove any potential remaining tissue from the endometrial cavity. At this point, the uterus was small and involuted. The Allis clamp was removed from the anterior lip of the cervix. Uterus was hemostatic. The patient was returned to the dorsal supine position and awoke from anesthesia without difficulty. She was taken to the recovery room in stable condition. EBL: 100 mL new. Fluids: Crystalloid per anesthesia Complications: None apparent Findings: Uterus that measures 6 to 8 weeks size with moderate tissue return during suction curette. Fluids: Crystalloid per anesthesia Pathology: Products of conception Date of Procedure: 11/23/24
--- NOTE | 2024-11-23 14:39 | W.ANESPOSTOP ---
Postoperative Evaluation Date, Time and Location Date Performed: 11/23/24 Time Performed: 14:39 Patient Location: Day Surgery Unit Vital Signs Most Recent Imported Vital Signs: Most Recent Vital Signs Temp Pulse Resp BP Pulse Ox 36.5 C 64 18 107/73 100 11/23/24 14:10 11/23/24 14:10 11/23/24 14:10 11/23/24 14:10 11/23/24 14:10 Pain Score Most Recent Pain Score: Most Recent Pain Score Pain Level 5 11/23/24 13:31 Assessment Mental Status: Awake (Alert & Oriented to Patient Baseline) Airway and Respiratory Function: Patent airway with normal (patient baseline) respiratory exam Cardiovascular Function: Hemodynamically Stable Hydration Status: Adequately Hydrated Nausea & Vomiting: No Nausea or Vomiting Pain: Pt. Denies Any Pain Peripheral Nerve Block: Patient did not receive a nerve block
== END 2024-11-23 14:29 | disposition home or self-care (01) ==
PROVIDERS: PCP Nurse Practitioner Family; Visit Provider Obstetrics & Gynecology
PROC: (CPT 59841; principal; 2024-11-23 12:00)
DX: O02.0 Blighted ovum and nonhydatidiform mole (principal); O01.9 Hydatidiform mole, unspecified
CPT/HCPCS: 59820; 88305; 88361; J0131; J1100; J1885; J2003; J2405; J2704

== ENCOUNTER 2025-01-26 18:54 | Emergency (ER) | payer BC, SELFPAY ==
--- NOTE | 2025-01-26 18:45 | RT.EKG_ITS ---
APPROVED REPORT Exam: Resting ECG Reason for Exam: chest pain Patient Location: E HR:85 bpm ECG Measurements Heart Rate 85 AXIS WY 142 P 59 QRSd 77 QRS 53 QT 371 T 33 QTc 441 Conclusion Sinus rhythm...normal P axis, V-rate 60- 99
[2025-01-26 18:57] VITALS: BP 122/81; PULSE 81; RESP 16; TEMP 36.9; O2SAT 98
--- NOTE | 2025-01-26 19:12 | ED.GENADUL_ITS ---
Discharge Plan Disposition Patient Disposition: Home Condition: Stable Discharge Details Clinical Impression: Chest pain of uncertain etiology Primary Care Provider: Rachelle Cobian ED Provider: Kota Araujo Home Meds and New Rx's Prescriptions: Continued hydroxyzine HCl 25 mg tablet 25 - 50 mg PO HS PRN (Reason: IC) Qty: 60 0RF phenazopyridine [Pyridium] 200 mg tablet 200 mg PO TID PRN (Reason: pain) Qty: 20 0RF metformin 750 mg tablet extended release 24 hr 750 mg PO DAILY Qty: 90 3RF valacyclovir [Valtrex] 500 mg tablet 500 mg PO Q12H 3 Days Qty: 60 1RF Rx Instructions: take 1 tablet BID PO for 3 days propranolol 10 mg tablet 10 - 20 mg PO BID PRN (Reason: anxiety, panic response) Qty: 120 0RF Rx Instructions: Trial 20mg BID scheduled; return to 10mg if dizziness or low BP cephalexin 250 mg capsule 250 mg PO ONCE PRN Patient Comments: post intercourse, RX'd by Urology.HE famotidine 40 mg tablet 40 mg PO BID Qty: 60 1RF Rx Instructions: Continuing high-dose due to Hx GERD, but tapering PPI Discharge Instructions Instructions: Costochondritis, Pleuritic Chest Pain ED Additional Instructions: You were seen in the emergency department for your pleuritic chest pain, there is no evidence of any damage to the heart or blood clot in the lungs, your pain is brief and sharp in nature consistent with costochondritis or possibly pleurisy which does not show up on imaging. Please try to take Tylenol and ibuprofen apply heat to the area of your chest and perform gentle stretching exercises, please return for any emergent concerns. Referrals: Rachelle Cobian APRN [Primary Care Provider, Family Practice] Discharge Data Discharge Date/Time-TO BE ENTERED AT DEPARTURE: 01/26/25 21:42 HPI General Date/Time Provider Initiated Documentation: 01/26/25 18:55 . HPI Narrative: 29 year-old female presents to ED today by POV/ambulating with a chief complaint of intermittent chest pain since Thursday- sharp, under L breast, with some dizziness with onset 2 days ago. Quality described as sharp pain, no radiation to shortness of breath, cough, fever, nausea/vomiting, palpitations, syncope. Severity is described as moderate to severe, lasts less than 45 mins. Palliating factors include nothing specific attempted- has been spontaneously resolving. Provoking factors include nothing specific. Events leading up to the incident/Associated Symptoms: Patient has no FHx of early onset cardiac disease. Patient not anticoagulated. Related Data Home Medications ?Medication ?Instructions ?Recorded ?Confirmed hydroxyzine HCl 25 mg tablet 25 - 50 mg (1 - 2 x 25 mg ) PO HS 03/04/23 01/26/25 PRN IC #60 tab-caps phenazopyridine 200 mg tablet 200 mg PO TID PRN pain # 20 tabs 06/08/23 01/26/25 (Pyridium) propranolol 10 mg tablet 10 - 20 mg (1 - 2 x 10 mg) P O BID 06/29/23 01/26/25 PRN anxiety, panic response #120 tabs cephalexin 250 mg capsule 250 mg PO ONCE PRN 09/04/23 01/26/25 famotidine 40 mg tablet 40 mg PO BID #60 tabs 01/26/25 metformin 750 mg tablet,extended 750 mg PO DAILY #90 t abs 07/13/24 01/26/25 release 24 hr valacyclovir 500 mg tablet 500 mg PO Q12H 3 days #60 t abs 12/13/24 01/26/25 (Valtrex) Previous Rx's ?Medication ?Instructions ?Recorded hydroxyzine HCl 25 mg tablet 25 - 50 mg (1 - 2 x 25 mg ) PO HS 03/04/23 PRN IC #60 tab-caps phenazopyridine 200 mg tablet 200 mg PO TID PRN pain # 20 tabs 06/08/23 (Pyridium) propranolol 10 mg tablet 10 - 20 mg (1 - 2 x 10 mg) P O BID 06/29/23 PRN anxiety, panic response #120 tabs famotidine 40 mg tablet 40 mg PO BID #60 tabs metformin 750 mg tablet,extended 750 mg PO DAILY #90 t abs 07/13/24 release 24 hr valacyclovir 500 mg tablet 500 mg PO Q12H 3 days #60 t abs 12/13/24 (Valtrex) Allergies Allergy/AdvReac Type Severity Reaction Status Date / Time amoxicillin Allergy Unknown Hives Verified 01/23/25 15:32 sulfamethoxazole (From AdvReac Nausea, Verified 01/23/25 15:32 Bactrim) vomiting, chills trimethoprim (From Bactrim) AdvReac Nausea, Verified 01/23/25 15:32 vomiting, chills General Stated Complaint: Chest Pain KYM: 3 Review of Systems All systems reviewed & are unremarkable except as noted in HPI and below Exam Narrative Exam Narrative: GENERAL APPEARANCE: Well-nourished, non-toxic, awake and alert, atraumatic, no acute distress. SKIN: Warm, pink, dry, intact, without rashes/lesions/ulcerations. HEAD: Normocephalic, atraumatic, normal hair distribution for gender/age. EYES: Normal conjunctiva, no exudates on lids/lashes. ENT: Nares patent, no circumoral cyanosis, no facial swelling NECK: Supple, trachea midline, painless cervical ROM. LUNGS/CHEST: Lungs CTA bilaterally- no rhonchi/rales/wheezes diffusely, no focally diminished or absent lung sounds, non-labored respirations, normal A/P diameter, symmetrical expansion, no chest wall deformity, L sided chest tenderness without crepitus HEART (CV/PV): Regular rate and rhythm without murmur, no peripheral edema, no JVD. ABDOMEN: Soft, non-distended, no guarding. MSK: Normal ROM, no swelling/deformity to bilateral UEs or LEs, moving all extremities without weakness, no cyanosis, spine midline without tenderness, normal curvature. NEURO: Mental Status AAOx4 - alert to person, place, time, events No facial droop, no forehead involvement. Motor: No focal weakness - strength 5/5 in bilateral UEs and LEs, proximal and distal, symmetric. Sensory: sensation intact to light touch globally. Gait normal: patient ambulated without ataxia into ED room. PSYCH: euthymic, cooperative, pleasant, appropriate speech Course Vital Signs Vital signs: Vital Signs Temperature 36.9 C 01/26/25 18:57 Pulse 81 01/26/25 18:57 Respiratory Rate 16 01/26/25 18:57 Blood Pressure 122/81 01/26/25 18:57 Pulse Oximetry 98 01/26/25 18:57 Temperature 36.9 C 01/26/25 18:57 Temperature Source Temporal Artery Scan 01/26/25 18:57 Pulse 81 01/26/25 18:57 Respiratory Rate 16 01/26/25 18:57 Blood Pressure 122/81 01/26/25 18:57 Blood Pressure Position Sitting 01/26/25 18:57 Pulse Oximetry 98 01/26/25 18:57 Oxygen Delivery Method Room Air 01/26/25 18:57 Oxygen Flow Rate 0 01/26/25 18:57 Pain Level 2 01/26/25 18:57 Medical Decision Making This dictation utilizes [id number] dictation software and may contain unedited grammatical errors. 29 year-old female presents to ED today by POV/ambulating with a chief complaint of intermittent chest pain since Thursday- sharp, under L breast, with some dizziness with onset 2 days ago. Quality described as sharp pain, no radiation to shortness of breath, cough, fever, nausea/vomiting, palpitations, syncope. Severity is described as moderate to severe, lasts less than 45 mins. Palliating factors include nothing specific attempted- has been spontaneously resolving. Provoking factors include nothing specific. Events leading up to the incident/Associated Symptoms: Patient has no FHx of early onset cardiac disease. Patients' medical history: History of chest pain, arthralgia, anxiety, history normal ECHO/stress test. Family and social history: noncontributory, nonsmoker. Pertinent exam findings / vital signs include left pleuritic chest tenderness without flail segment or crepitus, lungs CTA diffusely, regular pulse benign cardiac exam, neuro intact, benign abdomen. Differential / pathologies of concern include pleurisy, costochondritis, ACS unlikely, PE. Diagnostic studies of: -CBC, CMP, D-dimer, troponin, lipase, EKG. - CBC completely unremarkable - D-dimer negative - CMP completely unremarkable - Troponin negative with reliable onset - Lipase negative - EKG shows sinus rhythm 85 bpm with P waves of a narrow complex QRS, normal axis, artifact in V6 Interventions of: -1 g p.o. Tylenol, 10 mg p.o. Toradol, 10 mg p.o. Flexeril. ED Course/Assessment/Plan: 29-year-old female presents with left-sided pleuritic chest pain, has no symptoms of upper respiratory infection, very mild pleuritic tenderness and no shortness of breath, her workup for ACS is negative, D-dimer is negative indicating no PE, patient has no suspicion for pneumonia based on my clinical exam I do not feel a irradiative chest x-ray is warranted at this time, patient has history of anxiety, counseled her to follow-up with her primary care provider. Findings not consistent with PE, ACS, upper respiratory infection, pancreatitis. Disposition of chest pain of uncertain etiology. Patient verbalized understanding of the plan and return to ED criteria and engaged in shared decision making. Medical Records Medical records reviewed: Yes I reviewed the patient's medical records. Lab Data Lab results reviewed: Yes I reviewed the patient's lab results. Labs: Laboratory Tests Range/Units 01/26/25 20:30 WBC (4.4-10.8) 10^3/uL 9.33 RBC (3.93-5.22) 10^6/uL 4.76 Hgb (11.2-15.7) g/dL 13.5 Hct (36.0-46.0) % 40.1 MCV (80-95) fL 84 MCH (27.0-33.0) pg 28.4 MCHC (32.0-36.0) % 33.7 RDW (11.7-14.6) % 12.7 Plt Count (130-400) 10^3/uL 311 MPV (8.0-11.0) fL 10.2 Immature Gran % % 0.5 Neutrophils % % 66.9 Lymphocytes % % 25.3 Monocytes % % 4.3 Eosinophils % % 2.6 Basophils % % 0.4 Nucleated RBC % (0.0-0.3) % 0.0 Absolute Neutrophils (1.2-6.7) 10^3/uL 6.24 Absolute Lymphocytes (1.2-3.4) 10^3/uL 2.36 Absolute Monocytes (0.1-0.8) 10^3/uL 0.40 Absolute Eosinophils (0.0-0.7) 10^3/uL 0.24 Absolute Basophils (0.0-0.2) 10^3/uL 0.04 D-Dimer (<500) ng/mlFEU 227 Sodium (136-145) mmol/L 139 Potassium (3.5-5.1) mmol/L 3.7 Chloride (98-107) mmol/L 101 Carbon Dioxide (21.0-32.0) mmol/L 27.3 Anion Gap (3-11) mmol/L 10.7 BUN (7-18) mg/dL 16 Creatinine (0.55-1.02) mg/dL 0.8 Est GFR (CKD-EPI 2020) (mL/min/1.73m2) 101.59 Glucose (74-106) mg/dL 86 Calcium (8.5-10.1) mg/dL 9.1 Total Bilirubin (0.2-1.0) mg/dL 0.5 AST (15-37) U/L 32 ALT (14-59) U/L 41 Alkaline Phosphatase (46-116) U/L 83 Troponin I (<or=51) ng/L 4 Total Protein (6.4-8.2) g/dL 8.1 Albumin (3.4-5.0) g/dL 4.0 Lipase (<78) U/L 29 Quality:SDOH Health Related Social Needs: Health related social needs inadequate housing lonely/ isolated Health related social needs details ex routine PFSH All Active Problems (Updated 01/26/25 @ 21:20 by AGUSTÍN Hill) Chest pain of uncertain etiology (Acute) Preventative health care (Acute) Recurrent cold sores (Acute) Status post dilation and curettage (Acute) Blighted ovum (Acute) Otalgia, left ear (Acute) Vaginal discharge (Acute) Sore throat (Acute) Fever (Acute) Delayed menses (Acute) Infertility management (Acute) Family history of sleep apnea (Acute) Fatigue (Acute) Interstitial cystitis (Acute) Benign thyroid cyst (Chronic) US 08/05- benign, no further imaging or follow up needed Atypical nevus of female breast (Acute) Menstrual irregularity (Acute) Recurrent streptococcal tonsillitis (Acute) Tonsil stone (Acute) Many, large per pt report History of tachycardia (Acute) Family history of cardiac disorder in father (Acute) Antibiotic long-term use (Acute) Multiple Rx in past year ( Pain of acromioclavicular joint after trauma (Acute) Work related, by student, initially pulling with body weight, then crushing door against shoulder, then directly hitting/poking of shldr/clavicle/ACjoint (Apr, May 2023) AC joint pain (Acute) Work related, by student, initially pulling with body weight, then crushing door against shoulder, then directly hitting/poking of shldr/clavicle/ACjoint (Apr, May 2023) Pain of right clavicle (Acute) Work related, initial injury by student, pulling with body weight, but clavicle pain/injury prob 2' door crush (Apr,May 2023) Myalgia (Acute) Work related, initial injury by student, pulling with body weight (Apr,May 2023) Crush injury (Acute) Work related, crushed by door pushed by student (Apr,May 2023) Injury caused by pulling (Acute) Work related, initial injury by student, pulling with body weight (Apr,May 2023) Work related injury (Acute) Initial PULLING injury by student, then crushed by door pushed by same (Apr,May 2023) OCD (obsessive compulsive disorder) (Acute) per counseling per pt report Severe shoulder pain (Acute) Work related, initial injury by student, pulling with body weight (Apr,May 2023) + crushed by door pushed by student + direct hit/poking of shoulder/ACjoint Pharyngitis due to Streptococcus species (Acute) STrep A (+) x3 since February 2023 COVID-19 (Acute) x3, dec symptoms each time? Wrist pain, left (Acute) Abdominal pain (Acute) Pelvic floor dysfunction (Acute) Anxiety and depression (Chronic) Family hx of colon cancer (Acute) Mo (@ 47yo, 2016), living. Maternal GM. [place] 2011, 2019 (Dr. Prasad Berman)(5 yr recall). Heart murmur (Acute) EKG, Stress Tests (_), 2011-. Medical History PCOS (polycystic ovarian syndrome) Family history of bowel obstruction Sensation of pressure in bladder area Cloudy urine Yeast dermatitis Screen for STD (sexually transmitted disease) Amenorrhea Encounter for monitoring long-term proton pump inhibitor therapy GERD (gastroesophageal reflux disease) History of abnormal cervical Pap smear ~ 2019, with no Tx as expected recovery (but unclear why PAP in 1st place unless concern for DDx of vaginismus) Vaginismus Hx, with resolution post focused effort Hx of chronic ear infection tubes Scoliosis Family history of thyroid cancer Paternal aunt. Family hx-breast malignancy Paternal GM Dysuria Chest pain Per pt. stated this is r/t to her anxiety and acid reflux Irritable bowel syndrome notices she will often feel ill after meals .. possible gastroparesis? Hemorrhage of rectum and anus Arthralgia Lower Leg Surgical History Hx of esophagogastroduodenoscopy Hx of colonoscopy Family History Sister Substance abuse Anxiety Asthma Depression Mother Anxiety Colon cancer Depression Maternal Grandmother Colon cancer Diabetes Cancer skin Kidney disease Paternal Grandmother Breast cancer Anxiety Maternal Uncle Heart disease Father Heart disease Paternal Aunt Thyroid cancer Maternal Grandfather Anxiety Social History Smoking/Tobacco Use Status: Never Tobacco: How many years used: 0 Second Hand Exposure: Yes Smoking risk assessment performed?: Yes Alcohol Intake: current Alcohol Intake frequency: holidays/special occasions only Drug use: Never Substance use type: does not use Details: alcohol; 09/04 Adopted: No Caregiver/Support person: No Foster care: No Household members: spouse, children and other Details: stepdaughter Housing: apartment Number of Children: 1 number of grandchildren: 0 Communication Needs: None Education Level: master's degree Do you need help understanding health information?: Rarely current occupation: Teacher, [employer] Pets and animals: Yes Pets and animals: dog(s) Sexually active: Yes Do you think of yourself as: straight/heterosexual Current gender identity: female What is your relationship status?: How often do you talk on the phone with friends or family?: once per week How often do you get together with friends or relatives?: never Do you belong to any clubs or organized social groups?: no Panel score (0-1 are the most socially isolated patients): 1 What type of physical activity do you participate in: walking Duration: < 15 minutes/day Frequency: 3-4 times per week Shilpi/Protestant: None Agree to transfusion: No Seatbelt use: always Helmet use: No Drive intox or ride w/intox flatbed truck driver: No Do you feel safe at home: Yes Do you feel safe in your relationship?: Yes History History 1 Para Hx # Term Pregnancies Multiple births Hx # Pregnancies Ectopic pregnancies AB induced Hx Number of Living Children AB spontaneous 1 Past Pregnancies Del. Date GA/Weeks # Preg Succ Route Wgt Sex Labor Lgth Anesth esia Location [facility] 11/17/24 No
[2025-01-26 20:06] VITALS: RESP 16
[2025-01-26 20:48] LABS: Abs Immature Grans 0.05 10^3/uL (0.0-0.06); HCT 40.1 % (36.0-46.0); HGB 13.5 g/dL (11.2-15.7); Immature Grans % 0.5 %; MCH 28.4 pg (27.0-33.0); MCHC 33.7 % (32.0-36.0); MCV 84 fL (80-95); MPV 10.2 fL (8.0-11.0); Platelet Count 311 10^3/uL (130-400); RBC 4.76 10^6/uL (3.93-5.22); RDW 12.7 % (11.7-14.6); RDW-SD 38.8 fL; WBC 9.33 10^3/uL (4.4-10.8)
[2025-01-26 21:05] LABS: ALT 41 U/L (14-59); AST 32 U/L (15-37); Albumin 4.0 g/dL (3.4-5.0); Alkaline Phosphatase 83 U/L (46-116); Anion Gap 10.7 mmol/L (3-11); BUN 16 mg/dL (7-18); Bilirubin, Total 0.5 mg/dL (0.2-1.0); CO2 27.3 mmol/L (21.0-32.0); Calcium 9.1 mg/dL (8.5-10.1); Chloride 101 mmol/L (98-107); Estimated GFR 101.59 (mL/min/1.73m2); Glucose 86 mg/dL (74-106); Lipase 29 U/L (<78); Potassium 3.7 mmol/L (3.5-5.1); Sodium 139 mmol/L (136-145); Total Protein 8.1 g/dL (6.4-8.2); Troponin I 4 ng/L (<or=51)
[2025-01-26 21:14] LABS: D-Dimer 227 ng/mlFEU (<500)
[2025-01-26] MEDS: Acetaminophen 500 MG TAB 1000 MG PO (21:26)
[2025-01-26] MEDS: Cyclobenzaprine 10 MG TAB PO (21:27)
[2025-01-26] MEDS: Ketorolac 10 MG TAB PO (21:28)
== END 2025-01-26 21:42 | disposition home or self-care (01) ==
PROVIDERS: Emergency Provider Physician Assistant; PCP Nurse Practitioner Family
DX: R07.9 Chest pain, unspecified (principal)
CPT/HCPCS: 99284; 99283; 80053; 83690; 93005; 84484; 85025; 85379; 93010

== ENCOUNTER 2025-04-03 10:53 | Outpatient (REF) | payer BC, SELFPAY ==
--- NOTE | 2025-04-03 10:40 | PAPFT_PTH ---
PATIENT: Bhavana Munguia LOC: [facility] U#:[id number] AGE/SX: 29/F ROOM: RE04/03/[address]: Aaliyah Cobos DO : 1995 BED: DIS: 04/03/2025 SPEC #: [id number] RECD: 04/03/25 12:59 STATUS: TABRadha REQ #: [id number] ALICIA: 04/03/25 10:[address]: Aaliyah Cobos DEPT: [facility] Cytology RECD BY: Barbara Klein ENTERED: 04/03/25 12:59 SP TYPE: PAPFT OTHR DR: Rachelle Cobian APRN Tissues: 1 - CX/ENDOCX FOR PAP SMEARS Procedures: PAP THIN PREP/[facility] Screening HPV DNA PROBE Comments: [id number] (HPV 16 & 18/45)
== END 2025-04-03 10:54 | disposition home or self-care (01) ==
LOC: LBN 10:53
PROVIDERS: PCP Nurse Practitioner Family; Visit Provider Obstetrics & Gynecology
DX: Z12.4 Encounter for screening for malignant neoplasm of cervix (principal)
CPT/HCPCS: 88142; 87624